=== PATIENT | male | born 1950 | race Caucasian/White ===

== ENCOUNTER → 2019-08-22 09:16 | Outpatient (BNVA) | payer MEDICARE, OTHER, SELFPAY | PROVIDERS: Family Provider Family Medicine; Visit Provider Orthopaedic Surgery | DX: M25.552 Pain in left hip (principal) | CPT/HCPCS: 73503 ==

== ENCOUNTER 2019-12-24 08:11 | Outpatient (CLI) | payer MEDICARE, OTHER, SELFPAY ==
--- NOTE | 2019-12-24 08:32 | CT_ITS ---
WS: [id number] CT CHEST WITHOUT INTRAVENOUS CONTRAST HISTORY: LUNG NODULE TECHNIQUE: Contiguous 5 mm axial imaging performed on the thorax. Coronal and sagittal reformats are submitted. All CT scans at [facility] use at least one of these dose optimization techniq ues: automated exposure control; mA and/or kV adjustment per patient size (includes targeted exams wh ere dose is matched to clinical indication); or iterative reconstruction. CONTRAST: None DLP: 1163.29 mGycm COMPARISON: 08/26/2018, 05/21/2017 and 12/04/2016 Lungs and central airway: Slight volume loss and atelectasis at the RIGHT lung base with mild improve ment since the prior examination. Small pleural nodules and subpleural nodules in the RIGHT thorax. T he largest measures 5 mm in the RIGHT lower lobe has been present since 05/21/2017. Additional stable 6 mm nodule in the lingula. No new pulmonary nodule. No pneumonia. Overall improved aeration in the lo wer lung dennis bilaterally since 08/26/2018. Pleura: Mild pleural thickening on the RIGHT. There is a very small amount of residual fluid at the R IGHT lung base. Heart and pericardium: Moderate enlargement the chambers. Extensive coronary artery calcifications. D ual lead cardiac pacer. Mediastinum and shruthi: No mediastinum or hilar adenopathy. Vessels: Extensive coronary artery calcifications. Mild atherosclerosis aorta. Normal sized pulmonary arteries. Chest wall and lower neck: Cardiac pacer over the LEFT pectoralis muscle. Upper abdomen: No adrenal mass. Prior cholecystectomy. Heavy calcification in the splenic artery. Osseous structures: Increase in the thoracic kyphosis. CT/CT chest wo con [id number] IMPRESSION: 1. Stable pulmonary nodules since 2018. 2. Improving aeration at the lung bases. Mild persistent bilateral pleural thi ckening. 3. Moderate cardiomegaly. 4. Dual lead permanent cardiac pacer. 5. Prior cholecystectomy.
== END 2019-12-24 08:12 | disposition home or self-care (01) ==
LOC: RADWPI 08:15
PROVIDERS: Family Provider Family Medicine; Visit Provider Family Medicine
DX: R91.1 Solitary pulmonary nodule (principal); R91.8 Other nonspecific abnormal finding of lung field; I51.7 Cardiomegaly; Z95.0 Presence of cardiac pacemaker
CPT/HCPCS: 71250

== ENCOUNTER → 2020-03-23 08:02 | Outpatient (BNVA) | payer MEDICARE, OTHER, SELFPAY | PROVIDERS: Family Provider Family Medicine; PCP Family Medicine; Visit Provider Urology | DX: N40.1 Benign prostatic hyperplasia with lower urinary tract symptoms (principal); N48.1 Balanitis; Z12.5 Encounter for screening for malignant neoplasm of prostate | CPT/HCPCS: 81003; G0103 ==

== ENCOUNTER → 2021-03-23 10:51 | Outpatient (BNVA) | payer MEDICARE, OTHER, SELFPAY | PROVIDERS: Family Provider Family Medicine; PCP Family Medicine; Visit Provider Urology | DX: N40.1 Benign prostatic hyperplasia with lower urinary tract symptoms (principal); Z12.5 Encounter for screening for malignant neoplasm of prostate | CPT/HCPCS: 81003; G0103 ==

== ENCOUNTER → 2021-07-11 08:24 | Outpatient (BNVA) | payer MEDICARE, OTHER, SELFPAY | PROVIDERS: Family Provider Family Medicine; PCP Family Medicine; Visit Provider Nurse Practitioner Family | DX: N40.1 Benign prostatic hyperplasia with lower urinary tract symptoms (principal); N45.1 Epididymitis; N48.1 Balanitis | CPT/HCPCS: 81003 ==

== ENCOUNTER 2021-07-15 11:01 | Outpatient (CLI) | payer MEDICARE, OTHER, SELFPAY ==
[2021-07-15 11:31] LABS: INR 2.41 (0.8-1.2)
== END 2021-07-15 11:02 | disposition home or self-care (01) ==
LOC: LAB 11:04
PROVIDERS: PCP Family Medicine; Visit Provider Urology
DX: Z79.01 Long term (current) use of anticoagulants (principal)
CPT/HCPCS: 85610

== ENCOUNTER → 2021-08-01 07:46 | Outpatient (BNVA) | payer MEDICARE, OTHER, SELFPAY | PROVIDERS: PCP Family Medicine; Visit Provider Nurse Practitioner Family | DX: N40.1 Benign prostatic hyperplasia with lower urinary tract symptoms (principal); N13.8 Other obstructive and reflux uropathy | CPT/HCPCS: 81003 ==

== ENCOUNTER → 2021-08-30 07:58 | Outpatient (BNVA) | payer MEDICARE, OTHER, SELFPAY | PROVIDERS: PCP Family Medicine; Visit Provider Urology | DX: N40.1 Benign prostatic hyperplasia with lower urinary tract symptoms (principal); N45.1 Epididymitis; N48.1 Balanitis | CPT/HCPCS: 81003; 99213 ==

== ENCOUNTER → 2021-10-31 12:31 | Outpatient (BNVA) | payer MEDICARE, OTHER, SELFPAY | PROVIDERS: PCP Family Medicine; Visit Provider Otolaryngology | DX: J30.9 Allergic rhinitis, unspecified (principal); J32.9 Chronic sinusitis, unspecified; H66.93 Otitis media, unspecified, bilateral; H91.93 Unspecified hearing loss, bilateral; Z87.891 Personal history of nicotine dependence | CPT/HCPCS: 99203; 99204 ==

== ENCOUNTER 2022-01-09 12:02 | Outpatient (CLI) | payer MEDICARE, OTHER, SELFPAY ==
--- NOTE | 2022-01-09 12:10 | CT_ITS ---
WS: [id number] CT SINUSES TECHNIQUE: Noncontrast CT of the paranasal sinuses with coronal and sagittal reformatted images. CLINICAL INFORMATION: CHRONIC SINUSITIS COMPARISON: None. DLP: 481.[address] scans at [facility] use at least one of these dose optimization techniques: automated e xposure control; mA and/or kV adjustment per patient size (includes targeted exams where dose is matc hed to clinical indication); or iterative reconstruction. FINDINGS: Paranasal sinuses are well aerated. Mastoid air cells are well aerated. Normal posterior nasopharynx. Normal parapharyngeal fat. Mild LEFT to RIGHT nasal deviation measuring 3 mm. Mild narrowing of the ostiomeatal units bilaterall y which remain patent. Small LEFT debora bullosa. Frontal sinuses and ethmoid air cells are well aera radha. Maxillary sinuses and sphenoid sinuses are well aerated. CT/CT sinus wo con* [id number] IMPRESSION: 1. Mild LEFT to RIGHT nasal septal deviation measuring 3 mm. 2. Paranasal sinuses are well aerated. No acute sinusitis. 3. Small LEFT debora bullosa. 4. Mastoid air cells are well aerated. 5. Normal visualized posterior nasopharynx.
--- NOTE | 2022-01-09 12:10 | CT_ITS ---
WS: [id number] CT CHEST WITH INTRAVENOUS CONTRAST HISTORY: LUNG CANCER TECHNIQUE: Contiguous 5 mm axial imaging performed on the thorax. Coronal and sagittal reformats are submitted. All CT scans at [facility] use at least one of these dose optimization techniques: automated exposure control; mA and/or kV adjustment per patient size (includes targeted exams where dose is matched to clinical indication); or iterative reconstruction. CONTRAST: Omnipaque 350; 95 mL IV. DLP: 746.27 mGy.cm COMPARISON: 12/24/2019 Lungs and central airway: Prior RIGHT lower lobectomy. Changes of chronic emphysema. Pleural-based no dules are reidentified in the RIGHT upper lobe. The largest nodule measures 5 mm and unchanged in siz e. Volume loss with atelectatic changes at the RIGHT lung base. There is a focal area of low attenuat ion measuring 3.1 x 1.5 cm at the RIGHT lung base. Suspect this is a small amount of pleural fluid an d may be a small empyema. May be sterile. Similar finding as compared to 12/24/2019. Pleura: Small amount of pleural fluid at the RIGHT lung base may have slightly progressed. Probably n ot significant. There is mild pleural thickening which is probably postsurgical. Heart and pericardium: Markedly enlarged heart. All 4 chambers are enlarged. Most significant enlarge ment of the LEFT heart. Mediastinum and shruthi: Bilateral indeterminate hilar lymph nodes. The largest lymph node on the LEFT m easures 14 mm. Vessels: Mild atherosclerosis aorta. Normal size pulmonary artery. Chest wall and lower neck: LEFT subclavian defibrillator. Upper abdomen: Prior cholecystectomy. Tricuspid regurgitation into hepatic veins. Splenic artery calc ifications. Osseous structures: Increase in thoracic kyphosis. CT/CT chest w con* [id number] IMPRESSION: 1. Status post RIGHT lower lobectomy. 2. Pleural-based nodules in the RIGHT lung with pleural thickening and a small persistent effusion not significantly changed since 12/24/2019. Very slight prog ression of the RIGHT pleural effusion. 3. Indeterminate hilar lymphadenopathy. The largest lymph node on the LEFT is 14 mm. 4. Marked enlargement of the heart. 5. Prior cholecystectomy.
[2022-01-09] MEDS: iohexol 350 mg/mL 100 mL Btl IV (13:25)
== END 2022-01-09 12:03 | disposition home or self-care (01) ==
LOC: RAD 12:03
PROVIDERS: PCP Family Medicine; Visit Provider Family Medicine
DX: C34.90 Malignant neoplasm of unspecified part of unspecified bronchus or lung (principal); J32.9 Chronic sinusitis, unspecified; J34.2 Deviated nasal septum; Z90.2 Acquired absence of lung [part of]; R91.8 Other nonspecific abnormal finding of lung field; I51.7 Cardiomegaly; Z90.49 Acquired absence of other specified parts of digestive tract
CPT/HCPCS: 70486; 71260

== ENCOUNTER → 2022-01-31 10:57 | Outpatient (BNVA) | payer MEDICARE, OTHER, SELFPAY | PROVIDERS: PCP Family Medicine; Visit Provider Internal Medicine Pulmonary Disease | DX: R91.8 Other nonspecific abnormal finding of lung field (principal); J22 Unspecified acute lower respiratory infection; R06.02 Shortness of breath; R59.0 Localized enlarged lymph nodes; Z90.2 Acquired absence of lung [part of]; J43.9 Emphysema, unspecified; Z87.891 Personal history of nicotine dependence; Z85.118 Personal history of other malignant neoplasm of bronchus and lung; I50.9 Heart failure, unspecified; I48.91 Unspecified atrial fibrillation; Z95.0 Presence of cardiac pacemaker; Z79.01 Long term (current) use of anticoagulants | CPT/HCPCS: 87070; 87205; 99204 ==

== ENCOUNTER 2022-02-24 11:34 | Outpatient (CLI) | payer MEDICARE, OTHER, SELFPAY ==
[2022-02-24 12:20] LABS: Anion Gap 18.1 (5-19); Blood Urea Nitrogen 12 mg/dL (8-23); Calcium 9.4 mg/dL (8.5-10.5); Carbon Dioxide 29 mmol/L (22-29); Chloride 95 mmol/L (98-107); Glucose 108 mg/dL (65-115); Magnesium 1.7 mg/dL (1.7-2.3); Osmolality Calculated 288 mOsm/kg (285-295); Potassium 3.1 mmol/L (3.5-5.1); Sodium 139 mmol/L (136-145)
== END 2022-02-24 11:35 | disposition home or self-care (01) ==
LOC: LAB 11:37
PROVIDERS: PCP Family Medicine; Visit Provider Internal Medicine Pulmonary Disease
DX: I50.9 Heart failure, unspecified (principal)
CPT/HCPCS: 80048; 83735

== ENCOUNTER 2022-03-06 16:49 | Emergency (ER) | payer MEDICARE, OTHER, SELFPAY ==
[2022-03-06 16:55] VITALS: BP 85/47; PULSE 81; TEMP 36.3; O2SAT 95; BMI 29.0
[2022-03-06 18:22] VITALS: BP 97/62
--- NOTE | 2022-03-06 18:32 | W.ED.MALEGU ---
HPI - Male Genitourinary General: Chief complaint: Urogenital-Male Stated complaint: Marion sent, abd pain Time Seen by Provider: 03/06/22 17:23 History of Present Illness: 71-year-old male presents emergency department stating he can hardly urinate. Patient has a history of prostate enlargement. He is taking finasteride and Flomax. Patient also reports constipation for the last several days. Patient had a Rizvi catheter placed at [facility] where he was admitted for congestive heart failure and was receiving diuresis. He reports approximately 15 L were removed. He has been having trouble with a weak urine stream and incomplete emptying even preceding his Rizvi catheter but it seems to have gotten worse and today he can hardly urinate at all. A bedside bladder scan showed 750 cc of urine. Associated symptoms: Deny vomiting Review of Systems General: Reports: 10 or more systems reviewed and unremarkable except in HPI and below Const: Denies: fever(s) or chills Card: Denies: chest pain or syncope Resp: Denies: dyspnea GI: Denies: vomiting or diarrhea : Reports: difficulty urinating, urinary frequency, urinary hesitancy, urinary dribbling, difficulty starting urination and change in urine stream Skin/Breast: Denies: rash or sores Neuro: Denies: headache(s) or weakness in extremities PFSH ED PFSH: Medical History (Updated 03/06/22 @ 19:34 by Jeremi Downey MD) Acute cystitis BPH loc w urin obs/LUTS CHF (congestive heart failure) Chronic anticoagulation History of cardiac pacemaker Hypercholesterolemia Incomplete emptying of bladder Lung mass Pacemaker Surgical History (Updated 01/31/22 @ 19:48 by Zheng Iverson MD) History of cholecystectomy History of lobectomy of lung right lower on 01/29/2017 Family History Father No problems noted. Mother , at age 69 Cancer colon and stomach CAD (coronary artery disease) Other Diabetes Hypertension Stroke Social History Smoking and tobacco status: former smoker Quit status (tobacco): has quit using tobacco Year quit tobacco: 2016 Former quit date comment: 1-2ppd x 35 years Alcohol intake: current Alcohol intake frequency: few times a month Marital status: Current occupational status: retired History of recent travel: No Physical Exam Const: COMMON NORMALS: no limitations and well nourished EXAM LIMITATIONS: no altered mental status HENMT: COMMON NORMALS: normocephalic, atraumatic and external ears normal HEAD & SCALP: normocephalic and atraumatic EXTERNAL EAR: Yes external ears normal MOUTH: no muffled voice Neck/C-Spine: COMMON NORMALS: no JVD GENERAL: Yes normal visual inspection and Yes trachea midline Resp: COMMON NORMALS: normal respiratory effort, No use of accessory muscles and clear to auscultation bilaterally AUSCULTATION: clear to auscultation bilaterally Cardio: COMMON NORMALS: no JVD, regular rate and regular rhythm RATE: regular rate RHYTHM: regular rhythm GI: COMMON NORMALS: Soft to palpation PALPATION: Yes Soft to palpation, Yes Tenderness to palpation present (GI) Details: other (Suprapubic), No Guarding due to palpation present (GI) and Yes Bladder palpation abnormal : COMMON NORMALS: Yes normal external exam BLADDER/KIDNEY EXAM: Yes Bladder palpation abnormal PENIS: uncircumcised Course Vital Signs: Vital signs: Vital Signs Temperature 97.4 F L 03/06/22 16:55 Pulse Rate 81 03/06/22 16:55 Blood Pressure 97/62 03/06/22 18:22 Pulse Oximetry 95 03/06/22 16:55 Oxygen Delivery Me thod 03/06/22 16:55 MDM - Male Medical Decision Making Patient presents with acute on chronic urinary retention. He has 750 cc in his bladder. A Rizvi catheter was placed and 800 cc were drained. The patient is already taking 2 prostate medications. The plan is to check a urinalysis and if no signs of infection then can DC with instructions to follow-up with his urologist. Patient will need training on Rizvi catheter care at home. UPDATE: UA is positive for UTI. Culture of urine sent. Start on augmentin, as he's tolerated this in the past. D/c home with rizvi. BP has been soft but has been on aggressive diuresis--will have him monitor at home. Lab Data Laboratory Results Urine Color Yellow (Yellow) 03/06/22 18:50 Urine Appearance Clear (CLEAR) 03/06/22 18:50 Urine pH 7 (5-7) 03/06/22 18:50 Ur Specific [place] 1.010 (1.005-1.030) 03/06/22 18:50 Urine Protein Neg (Negative) 03/06/22 18:50 Urine Glucose (UA) Norm (Normal) 03/06/22 18:50 Urine Ketones Negative (Negative) 03/06/22 18:50 Urine Blood 3+ (Negative) H 03/06/22 18:50 Urine Nitrate Negative (Negative) 03/06/22 18:50 Urine Bilirubin Neg (Negative) 03/06/22 18:50 Urine Urobilinogen 4 mg/dL (Negative) H 03/06/22 18:50 Ur Leukocyte Esterase 2+ (Negative) H 03/06/22 18:50 Urine RBC Too numerous to cnt /hpf (0-2) H 03/06/22 18:50 Urine WBC Too numerous to cnt /hpf (0-5) H 03/06/22 18:50 Ur Squamous Epith Cells 0-4 /hpf (0-5) H 03/06/22 18:50 Amorphous Sediment Not Reportable 03/06/22 18:50 Urine Bacteria 3+ /hpf (NONE) H 03/06/22 18:50 Discharge Plan Discharge Patient Disposition: Home Clinical Impression: Urinary tract infection, Acute retention of urine Condition: Stable Prescriptions: New amoxicillin-pot clavulanate 875-125 mg tablet 1 tab PO BID 10 Days Qty: 20 0RF Discontinued amoxicillin-pot clavulanate [Augmentin] 500-125 mg tablet 1 tab PO BID Qty: 14 0RF No Action rosuvastatin 20 mg tablet 20 mg PO DAILY cetirizine [All Day Allergy (cetirizine)] 10 mg tablet 5 mg PO DAILY PRN albuterol sulfate [ProAir HFA] 90 mcg/actuation HFA aerosol inhaler 2 puff INHALATION Q6H PRN nitroglycerin [Nitrostat] 0.4 mg tablet, sublingual 0.4 mg SUBLINGUAL Q5M PRN carvedilol 25 mg tablet 25 mg PO BID warfarin 3 mg tablet 2.5 mg PO DAILY trazodone 50 mg tablet See Rx Instructions PO DAILY Rx Instructions: 1-3 tabs by mouth nightly ketoconazole 2 % shampoo 1 applic topical .2 x weekly Qty: 120 3RF Rx Instructions: Lather into scalp 2 times weekly. Allow to sit on scalp for 5 minutes before rinsing. mometasone 0.1 % solution 1 applic topical DAILY Qty: 60 2RF Hold Instructions: Patient No Longer Taking Rx Instructions: Apply a few drops daily as needed to affected areas on scalp Jardiance 10 mg tablet 10 mg PO DAILY fenofibrate 160 mg tablet 160 mg PO DAILY Entresto 24-26 mg tablet 1 tab PO BID bumetanide 1 mg tablet 1 mg PO BID metoprolol succinate 50 mg tablet extended release 24 hr 50 mg PO BID spironolactone 25 mg tablet 25 mg PO .1/2 x1 day Children's Flonase Sensimist 27.5 mcg/actuation spray,suspension 2 spray intranasal DAILY Rx Instructions: into each nostril ipratropium bromide 42 mcg (0.06 %) spray,non-aerosol 2 spray intranasal DAILY Rx Instructions: administer into each nostril magnesium oxide 250 mg magnesium tablet 250 mg PO DAILY loratadine 10 mg tablet 10 mg PO DAILY ipratropium-albuterol 0.5 mg-3 mg(2.5 mg base)/3 mL solution for nebulization 3 ml inhalation Q6H PRN pantoprazole 40 mg tablet,delayed release (DR/EC) 40 mg PO DAILY Spiriva Respimat 2.5 mcg/actuation mist 2 puff inhalation DAILY Qty: 4 3RF Rx Instructions: please dispose under 340B albuterol sulfate [Ventolin HFA] 90 mcg/actuation HFA aerosol inhaler 1 inh inhalation QID PRN (Reason: shortness of breath or wheezing) Qty: 8.5 3RF Rx Instructions: UNDER 340 b finasteride 5 mg tablet See Rx Instructions .ROUTE .COMPLEX Qty: 90 3RF Dose Instruction: Take 1 tablet by mouth once daily Rx Instructions: Take 1 tablet by mouth once daily tamsulosin 0.4 mg capsule See Rx Instructions .ROUTE .COMPLEX Qty: 180 3RF Dose Instruction: Take 1 capsule by mouth twice daily Rx Instructions: Take 1 capsule by mouth twice daily potassium chloride 10 mEq tablet extended release 10 meq PO DAILY Qty: 30 3RF Discharge Orders: Discharge ED (Routine); Ordered 03/06/22 Ordered By: Jeremi Downey Referrals: [employer] MD [Primary Care Provider] - Fernando Marion MD [Physician] - 4-7 days (UTI, urinary retention, rizvi had to be placed) Discharge Diet: Usual diet Discharge Activity: Increase activity as tolerated Patient Instructions: Pain Management, Rizvi Catheter Placement and Care (ED), Urinary Retention in Men (ED) Activity Restrictions/Additional Instructions: Make an appointment with Dr Marion for as soon as possible. Take antibiotics as prescribed. Read handou about rizvi care. Return if getting worse. Monitor your blood pressure at home. If your blood pressure is less than 90 on top, call your doctor and do not take your bumetanide or carvedilol, Coding Level of Care Code ED Insurance Claims Representative for Chg Fwd Exam Detailed
[2022-03-06 19:14] LABS: Add Urine Microscopic? YES; Bilirubin Urine Neg (Negative); Blood Urine 3+ (Negative); Glucose Urine UA Norm (Normal); Ketones Urine Negative (Negative); Leukocyte Esterase Urine 2+ (Negative); Nitrate Urine Negative (Negative); Protein Urine Neg (Negative); Urine Appearance Clear (CLEAR); Urine Color Yellow (Yellow); Urobilinogen Urine 4 mg/dL (Negative); pH Urine 7 (5-7)
[2022-03-06 19:23] LABS: RBC Urine TOO NUMEROUS TO CNT /hpf (0-2); WBC Urine TOO NUMEROUS TO CNT /hpf (0-5)
[2022-03-06 19:24] LABS: Add Urine Culture? Yes; Bacteria Urine 3+ /hpf; Squamous Epithelial Cell Urine 0-4 /hpf (0-5)
[2022-03-06 19:31] VITALS: BP 108/63; RESP 18
[2022-03-06] MEDS: ciprofloxacin 500 mg Tablet PO (19:42)
== END 2022-03-06 20:00 | disposition home or self-care (01) ==
PROVIDERS: Emergency Provider Emergency Medicine; PCP Family Medicine
DX: N39.0 Urinary tract infection, site not specified (principal); Z79.01 Long term (current) use of anticoagulants; Z87.891 Personal history of nicotine dependence; N40.1 Benign prostatic hyperplasia with lower urinary tract symptoms; R33.8 Other retention of urine; Z95.0 Presence of cardiac pacemaker; Z90.2 Acquired absence of lung [part of]; I50.9 Heart failure, unspecified
CPT/HCPCS: 51702; 51798; 81001; 87077; 87086; 87186; 99283

== ENCOUNTER → 2022-03-13 12:42 | Outpatient (BNVA) | payer MEDICARE, OTHER, SELFPAY | PROVIDERS: PCP Family Medicine; Visit Provider Family Medicine | DX: E87.6 Hypokalemia (principal); E78.00 Pure hypercholesterolemia, unspecified; Z79.01 Long term (current) use of anticoagulants; N39.0 Urinary tract infection, site not specified; I50.9 Heart failure, unspecified; N48.1 Balanitis; R33.8 Other retention of urine; R59.0 Localized enlarged lymph nodes; R13.10 Dysphagia, unspecified | CPT/HCPCS: 80053; 80061; 83735; 84443; 85610 ==

== ENCOUNTER → 2022-03-22 08:17 | Outpatient (BNVA) | payer MEDICARE, OTHER, SELFPAY | PROVIDERS: PCP Family Medicine; Visit Provider Family Medicine | DX: E03.8 Other specified hypothyroidism (principal); I50.9 Heart failure, unspecified; E87.6 Hypokalemia | CPT/HCPCS: 80048; 84439; 84443; 85610 ==

== ENCOUNTER → 2022-03-23 10:32 | Outpatient (BNVA) | payer MEDICARE, OTHER, SELFPAY | PROVIDERS: PCP Family Medicine; Visit Provider Urology | DX: N40.1 Benign prostatic hyperplasia with lower urinary tract symptoms (principal); R33.8 Other retention of urine; N30.00 Acute cystitis without hematuria; Z79.01 Long term (current) use of anticoagulants | CPT/HCPCS: 52000; 99214 ==

== ENCOUNTER 2022-03-29 10:52 | Outpatient (CLI) | payer MEDICARE, OTHER, SELFPAY | END 2022-03-29 10:53 | disposition home or self-care (01) | LOC: RT 10:55 | PROVIDERS: PCP Family Medicine; Visit Provider Internal Medicine Pulmonary Disease | DX: R06.02 Shortness of breath (principal); J43.9 Emphysema, unspecified; R59.0 Localized enlarged lymph nodes; Z90.2 Acquired absence of lung [part of]; Z87.891 Personal history of nicotine dependence; I50.9 Heart failure, unspecified; I95.2 Hypotension due to drugs; Z85.118 Personal history of other malignant neoplasm of bronchus and lung; R06.00 Dyspnea, unspecified; I48.91 Unspecified atrial fibrillation; Z79.01 Long term (current) use of anticoagulants | CPT/HCPCS: 94010; 94726; 94729; 99214 ==

== ENCOUNTER → 2022-04-03 12:12 | Outpatient (BNVA) | payer MEDICARE, OTHER, SELFPAY | PROVIDERS: PCP Family Medicine; Visit Provider Family Medicine | DX: N40.1 Benign prostatic hyperplasia with lower urinary tract symptoms (principal); R39.9 Unspecified symptoms and signs involving the genitourinary system; N39.0 Urinary tract infection, site not specified; I50.9 Heart failure, unspecified; R13.10 Dysphagia, unspecified | CPT/HCPCS: 80053; 81000; 83735; 85025; 87077; 87086; 87184 ==

== ENCOUNTER 2022-04-11 18:48 | Inpatient (IN) | payer MEDICARE, OTHER, SELFPAY ==
[2022-04-11 19:08] VITALS: BP 89/53; PULSE 78; RESP 18; TEMP 36.8; O2SAT 96; BMI 29.1
[2022-04-11 21:09] LABS: Basophils # 0.1 10^3/uL (0.0-0.1); Basophils % 0.7 %; Eosinophils % 0.4 %; Hematocrit 51.8 % (42.0-52.0); Lymphocytes # 1.3 10^3/uL (0.8-4.8); Lymphocytes % 19.6 %; Mean Corpuscular HGB Conc 32.8 g/dL (30.0-36.0); Mean Corpuscular Hemoglobin 26.3 pg (28.0-34.0); Mean Corpuscular Volume 80.2 fl (80-94); Mean Platelet Volume 11.6 fL (7.4-10.4); Monocytes # 0.5 10^3/uL (0.2-0.9); Monocytes % 7.1 %; Neutrophils # 4.84 10^3/uL (1.8-7.7); Neutrophils % 71.6 %; Nucleated Red Blood Cells % 0 %; Platelet Count 114 10^3/cmm (130-400); Red Blood Count 6.46 10^6/uL (4.1-5.3); Red Cell Distribution Width 21.8 % (12.1-15.1); White Blood Count 6.8 10^3/uL (4.0-10.0)
[2022-04-11 21:18] LABS: INR 3.25 (0.8-1.2)
[2022-04-11 21:24] VITALS: BP 95/77; PULSE 74; RESP 27; O2SAT 97
[2022-04-11 21:28] LABS: Add RBC Morph Yes; RBC Morph Comp No
[2022-04-11 21:29] LABS: Anisocytosis 2+; Dimorphic RBC 1+; Microcytosis 1+; Target Cells 1+
[2022-04-11 21:32] LABS: Alanine Aminotransferase 26 U/L (0-41); Albumin Level 3.4 g/dL (3.5-5.2); Alkaline Phosphatase 113 U/L (40-130); Anion Gap 13.9 (5-19); Aspartate Amino Transferase 50 U/L (0-40); Blood Urea Nitrogen 15 mg/dL (8-23); Carbon Dioxide 29 mmol/L (22-29); Chloride 96 mmol/L (98-107); Globulin 3.4 g/dL (1.3-4.6); Glucose 110 mg/dL (65-115); Osmolality Calculated 281 mOsm/kg (285-295); Potassium 3.9 mmol/L (3.5-5.1); Sodium 135 mmol/L (136-145); Total Bilirubin 3.7 mg/dL (0.15-1.2); Total Protein 6.8 g/dL (6.6-8.7)
--- NOTE | 2022-04-11 21:44 | CTR_ITS ---
PROCEDURE INFORMATION: Exam: CT Abdomen And Pelvis With Contrast Exam date and time: 04/11/2022 9:53 PM Age: 71 years old Clinical indication: Abdominal pain; Generalized; Prior surgery; Surgery type: RT lower lobectomy. Pacemaker. Gb. Lt femur. Patient HX: C/O abd pain with gross hematuria. History of lung cancer. TECHNIQUE: Imaging protocol: Computed tomography of the abdomen and pelvis with contrast. Radiation optimization: All CT scans at this facility use at least one of these dose optimization techniques: automated exposure control; mA and/or kV adjustment per patient size (includes targeted exams where dose is matched to clinical indication); or iterative reconstruction. Contrast material: OMNI 350; Contrast volume: 100 ml; Contrast route: INTRAVENOUS (IV); COMPARISON: CT abdomen pelvis w con* [id number] 12/07/2015 4:23 PM RADIATION DOSE METRICS: Total DLP (mGy-cm): 775.48 FINDINGS: Tubes, catheters and devices: Pacemaker leads in the heart. Pleural spaces: Small right pleural effusion. Heart: Cardiomegaly. Liver: Hepatomegaly measuring 20.5 cm with diffuse fatty infiltration. No focal nodule. Gallbladder and bile ducts: Cholecystectomy. The bile ducts are normal. Pancreas: Normal. No ductal dilation. Spleen: Normal. No splenomegaly. Adrenal glands: Normal. No mass. Kidneys and ureters: Normal. No hydronephrosis. Stomach and bowel: Diverticulosis of the colon. No diverticulitis. The stomach and small bowel are unremarkable. No obstruction. Appendix: The appendix is visualized and is normal. Intraperitoneal space: Mild mesenteric edema. Mild ascites in the upper abdomen and pelvis. Vasculature: Diffuse arterial calcifications. 3.3 cm infrarenal abdominal aortic aneurysm. Moderate stenosis at the origin of the celiac artery. Moderate stenosis in the proximal superior mesenteric artery. Lymph nodes: Unremarkable. No enlarged lymph nodes. Urinary bladder: Urinary bladder wall thickening and enhancement with surrounding fat stranding. 5.4 cm posterior right urinary bladder diverticulum with wall enhancement and thickening. Reproductive: Coarse calcifications in a normal sized prostate. Bones/joints: Intramedullary roseanna in the left femur. Degenerative changes of the spine. No acute fracture identified. Soft tissues: Diffuse body wall edema. Mild presacral soft tissue edema. CT/CT abdomen pelvis w con* [id number] IMPRESSION: 1. Findings consistent with cystitis with an infected large posterior right urinary bladder diverticulum. 2. Volume overload with a right pleural effusion, ascites, and body wall edema. 3. Diverticulosis of the colon without diverticulitis. 4. Enlarged liver with fatty infiltration. 5. 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
[2022-04-11] MEDS: iohexol 350 mg/mL 500 mL Btl (per mL) IV (22:05)
[2022-04-11] MEDS: sodium chloride 0.9% 1,000 ML 999 ML IV (22:09)
[2022-04-11 22:11] LABS: Lactate (Lactic Acid level) 1.7 mmol/L (0.5-2.2)
[2022-04-11 22:20] LABS: NT Pro B Type Natriuretic Pept 6064 pg/mL (0-125)
[2022-04-11 22:30] VITALS: BP 90/68; PULSE 88; RESP 19; O2SAT 94
--- NOTE | 2022-04-11 22:32 | XRR_ITS ---
PROCEDURE INFORMATION: Exam: XR Chest Exam date and time: 04/11/2022 10:40 PM Age: 71 years old Clinical indication: Shortness of breath; Prior surgery; Surgery type: RT lower lobectomy. Pacemaker. Patient HX: SOB with mild hypoxia on monitor. History of chf and lung cancer. TECHNIQUE: Imaging protocol: Radiologic exam of the chest. Views: 1 view. COMPARISON: CT chest w con* [id number] 01/09/2022 1:17 PM FINDINGS: Tubes, catheters and devices: Intact dual lead left subclavian pacemaker. Lungs: Mild perihilar and basilar interstitial opacities. No consolidation. Pleural spaces: Small right pleural effusion with fluid in the minor fissure. No pneumothorax. Heart/Mediastinum: Stable cardiomegaly. Bones/joints: Unremarkable. XR/XR chest 1V portable [id number] IMPRESSION: Mild congestive heart failure pattern.
--- NOTE | 2022-04-11 22:37 | ED_ITS ---
HPI - Male Genitourinary General: Chief complaint: Urogenital-Male Stated complaint: bleeding in bladder area? Time Seen by Provider: 04/11/22 21:27 Source: patient Mode of arrival: ambulatory Limitations: no limitations History of Present Illness: 71-year-old male who states that he has been dealing with recurrent urinary tract infections since February he states that he has had increasing bladder pain with hematuria over the last 2 days states pain sharp in nature rates it a 2 out of 10 is having much more blood than typical he is on Coumadin he denies any fevers denies any worsening improving factors. Associated symptoms: Reports dysuria and hematuria; Deny nausea or vomiting Review of Systems Const: Denies: fever(s), chills, body aches or change in appetite Eyes: Denies: blurry vision or eye discomfort ENMT: Denies: throat pain or dental pain Card: Denies: chest pain Resp: Denies: dyspnea GI: Denies: abdominal pain, nausea, vomiting or diarrhea : Reports: dysuria, urinary urgency and hematuria Musc: Denies: neck pain or back pain Skin/Breast: Denies: rash Neuro: Denies: headache(s) Psych: Denies: depression Fredrick/Lymph: Denies: easy bruising All/Imm: Denies: urticaria PFSH ED PFSH: Medical History Allergic rhinitis BPH loc w urin obs/LUTS Cardiac defibrillator in place Cardiomegaly CHF (congestive heart failure) Ex-smoker GERD (gastroesophageal reflux disease) Hearing loss of both ears History of lung cancer Hypercholesterolemia Pacemaker Warfarin anticoagulation Surgical History History of cardiac defibrillator placement History of cardiac radiofrequency ablation History of cholecystectomy History of femur fracture left, surgical repair History of lobectomy of lung right lower on 01/29/2017 History of permanent cardiac pacemaker placement History of umbilical hernia repair Family History Father No problems noted. 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 History of recent travel: No Physical Exam Const: COMMON NORMALS: no acute distress, patient oriented x3 and healthy appearing HENMT: COMMON NORMALS: normocephalic and atraumatic HEAD & SCALP: normocephalic and atraumatic Eye: COMMON NORMALS: Equal, round and reactive pupils present and EOMs intact bilaterally PUPIL: Yes Equal, round and reactive pupils present Neck/C-Spine: COMMON NORMALS: full ROM and supple Chest: COMMONS NORMALS: normal inspection of the chest and normal palpation of entire chest wall Resp: COMMON NORMALS: normal respiratory effort, No retractions, No use of accessory muscles and clear to auscultation bilaterally AUSCULTATION: clear to auscultation bilaterally Cardio: COMMON NORMALS: regular rate, regular rhythm and No murmurs present (Cardio) RATE: regular rate RHYTHM: regular rhythm GI: COMMON NORMALS: Normal to inspection, nondistended, normoactive bowel sounds present, Soft to palpation, non-tender and no masses PALPATION: Yes Soft to palpation Extremity: COMMON NORMALS: normal to inspection and full ROM Neuro: COMMON NORMALS: patient oriented x3, moves all extremities and no focal motor deficits Psych: COMMON NORMALS: mental status grossly normal, Normal thought process present and cooperative THOUGHT PROCESS: Normal thought process present Skin: COMMON NORMALS: no rashes or lesions noted and no wounds GENERAL SKIN EXAM: no rashes or lesions noted Course Vital Signs: Vital signs: Vital Signs Temperature 98.2 F 04/11/22 19:08 Pulse Rate 87 04/11/22 23:30 Respiratory Rate 24 H 04/11/22 23:30 Blood Pressure 84/69 04/11/22 23:30 Pulse Oximetry 97 04/11/22 23:30 Oxygen Delivery Me thod 04/11/22 23:30 MDM - Male Medical Decision Making Patient presents here with hematuria was found to have cystitis with his hematuria CT shows cystitis as well he is hypotensive. States he is chronically hypotensive white count lactate is normal spoke to hospitalist will admit for cystitis. Lab Data 04/11/22 20:41 04/11/22 20:41 Radiology Impressions Abdomen/Pelvis CT 04/11/22 21:44 IMPRESSION: 1. Findings consistent with cystitis with an infected large posterior right urinary bladder diverticulum. 2. Volume overload with a right pleural effusion, ascites, and body wall edema. 3. Diverticulosis of the colon without diverticulitis. 4. Enlarged liver with fatty infiltration. 5. 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 Chest X-Ray 04/11/22 22:32 IMPRESSION: Mild congestive heart failure pattern. Laboratory Results WBC 6.8 10^3/uL (4.0-10.0) 04/11/22 20:41 RBC 6.46 10^6/uL (4.1-5.3) H 04/11/22 20:41 Hgb 17.0 g/dL (11.7-16.6) H 04/11/22 20:41 Hct 51.8 % (42.0-52.0) 04/11/22 20:41 MCV 80.2 fl (80-94) 04/11/22 20:41 MCH 26.3 pg (28.0-34.0) L 04/11/22 20:41 MCHC 32.8 g/dL (30.0-36.0) 04/11/22 20:41 RDW 21.8 % (12.1-15.1) H 04/11/22 20:41 Plt Count 114 10^3/cmm (130-400) L 04/11/22 20:41 MPV 11.6 fL (7.4-10.4) H 04/11/22 20:41 Neut % (Auto) 71.6 % 04/11/22 20:41 Lymph % (Auto) 19.6 % 04/11/22 20:41 [place] % (Auto) 7.1 % 04/11/22 20:41 Eos % (Auto) 0.4 % 04/11/22 20:41 Baso % (Auto) 0.7 % 04/11/22 20:41 Neut # (Auto) 4.84 10^3/uL (1.8-7.7) 04/11/22 20:41 Lymph # (Auto) 1.3 10^3/uL (0.8-4.8) 04/11/22 20:41 [place] # (Auto) 0.5 10^3/uL (0.2-0.9) 04/11/22 20:41 Eos # (Auto) 0.0 10^3/uL (0.0-0.8) 04/11/22 20:41 Baso # (Auto) 0.1 10^3/uL (0.0-0.1) 04/11/22 20:41 Nucleated RBC % (auto) 0 % 04/11/22 20:41 Nucleated RBCs # 0.0 /100WBC 04/11/22 20:41 Dimorphic RBCs 1+ H 04/11/22 20:41 Anisocytosis 2+ H 04/11/22 20:41 Microcytosis 1+ H 04/11/22 20:41 Target Cells 1+ H 04/11/22 20:41 PT 33.40 SECONDS (12.1-14.9) H 04/11/22 20:41 INR 3.25 (0.8-1.2) H 04/11/22 20:41 Sodium 135 mmol/L (136-145) L 04/11/22 20:41 Potassium 3.9 mmol/L (3.5-5.1) 04/11/22 20:41 Chloride 96 mmol/L (98-107) L 04/11/22 20:41 Carbon Dioxide 29 mmol/L (22-29) 04/11/22 20:41 Anion Gap 13.9 (5-19) 04/11/22 20:41 BUN 15 mg/dL (8-23) 04/11/22 20:41 Creatinine 0.9 mg/dL (0.7-1.2) 04/11/22 20:41 GFR Calculation Not Reportable 04/11/22 20:41 Glucose 110 mg/dL (65-115) 04/11/22 20:41 Calculated Osmolality 281 mOsm/kg (285-295) L 04/11/22 20:41 Lactate 1.7 mmol/L (0.5-2.2) 04/11/22 20:42 Calcium 9.0 mg/dL (8.5-10.5) 04/11/22 20:41 Total Bilirubin 3.7 mg/dL (0.15-1.2) H 04/11/22 20:41 AST 50 U/L (0-40) H 04/11/22 20:41 ALT 26 U/L (0-41) 04/11/22 20:41 Alkaline Phosphatase 113 U/L (40-130) 04/11/22 20:41 NT-Pro-B Natriuret Pep 6064 pg/mL (0-125) H 04/11/22 20:42 Total Protein 6.8 g/dL (6.6-8.7) 04/11/22 20:41 Albumin 3.4 g/dL (3.5-5.2) L 04/11/22 20:41 Globulin 3.4 g/dL (1.3-4.6) 04/11/22 20:41 Urine Color Dark yellow (Yellow) 04/11/22 23:03 Urine Appearance Cloudy (CLEAR) A 04/11/22 23:03 Urine pH 5 (5-7) 04/11/22 23:03 Ur Specific [place] 1.015 (1.005-1.030) 04/11/22 23:03 Urine Protein 2+ (Negative) H 04/11/22 23:03 Urine Glucose (UA) Norm (Normal) 04/11/22 23:03 Urine Ketones Negative (Negative) 04/11/22 23:03 Urine Blood 3+ (Negative) H 04/11/22 23:03 Urine Nitrate Negative (Negative) 04/11/22 23:03 Urine Bilirubin 1+ (Negative) H 04/11/22 23:03 Urine Urobilinogen 4 mg/dL (Negative) H 04/11/22 23:03 Ur Leukocyte Esterase 2+ (Negative) H 04/11/22 23:03 Urine RBC Too numerous to cnt /hpf (0-2) H 04/11/22 23:03 Urine WBC Too numerous to cnt /hpf (0-5) H 04/11/22 23:03 Ur Squamous Epith Cells 0-4 /hpf (0-5) H 04/11/22 23:03 Amorphous Sediment Not Reportable 04/11/22 23:03 Urine Bacteria 4+ /hpf (NONE) H 04/11/22 23:03 Discharge Plan Discharge Patient Disposition: Admitted As Inpatient Clinical Impression: Acute cystitis, Acute hypotension Condition: Stable Prescriptions: No Action rosuvastatin 20 mg tablet 20 mg PO DAILY nitroglycerin [Nitrostat] 0.4 mg tablet, sublingual 0.4 mg SUBLINGUAL Q5M PRN cetirizine [All Day Allergy (cetirizine)] 10 mg tablet 10 mg PO DAILY PRN trazodone 50 mg tablet 100 mg PO DAILY loratadine [Allergy Relief (loratadine)] 10 mg tablet 10 mg PO DAILY mexiletine 150 mg capsule 150 mg PO Q8H bumetanide 1 mg tablet 2 mg PO BID levalbuterol tartrate [Xopenex HFA] 45 mcg/actuation HFA aerosol inhaler 2 inh inhalation Q6H PRN (Reason: shortness of breath or wheezing) Qty: 15 3RF Incruse Ellipta 62.5 mcg/actuation blister with device 1 inh inhalation DAILY Qty: 30 3RF metoprolol succinate 50 mg tablet extended release 24 hr 25 mg PO BID spironolactone 25 mg tablet 12.5 mg PO DAILY pantoprazole 40 mg tablet,delayed release (DR/EC) 40 mg PO DAILY ciprofloxacin HCl 500 mg tablet 500 mg PO BID 10 Days Qty: 20 0RF finasteride 5 mg tablet See Rx Instructions .ROUTE .COMPLEX Qty: 90 3RF Dose Instruction: Take 1 tablet by mouth once daily Rx Instructions: Take 1 tablet by mouth once daily tamsulosin 0.4 mg capsule See Rx Instructions .ROUTE .COMPLEX Qty: 180 3RF Dose Instruction: Take 1 capsule by mouth twice daily Rx Instructions: Take 1 capsule by mouth twice daily warfarin 2.5 mg tablet 2.5 mg PO DAILY 90 Days Qty: 90 1RF potassium chloride 10 mEq tablet extended release See Rx Instructions PO DAILY PRN (Reason: hypokalemia) 30 Days Qty: 150 0RF Rx Instructions: take 3 tabs in the morning, 2 in the evening orally daily PRN; fluconazole 150 mg tablet 150 mg PO DAILY Qty: 1 0RF Referrals: Rosa Gramajo MD [Primary Care Provider] - Coding Level of Care Code ED Family Program Specialist for Chg Fwd Exam Comprehensive
[2022-04-11] MEDS: cefTRIAXone 1,000 MG in sodium chloride 0.9% (plus) 50 ML 100 MG IV (23:07)
[2022-04-11 23:23] LABS: Add Urine Microscopic? YES; Bilirubin Urine 1+ (Negative); Blood Urine 3+ (Negative); Glucose Urine UA Norm (Normal); Ketones Urine Negative (Negative); Leukocyte Esterase Urine 2+ (Negative); Nitrate Urine Negative (Negative); Protein Urine 2+ (Negative); Specific Gravity, Urine 1.015 (1.005-1.030); Urine Appearance Cloudy (CLEAR); Urine Color Dark Yellow (Yellow); Urobilinogen Urine 4 mg/dL (Negative); pH Urine 5 (5-7)
[2022-04-11 23:24] LABS: Add Urine Culture? Yes; Bacteria Urine 4+ /hpf; RBC Urine TOO NUMEROUS TO CNT /hpf (0-2); Squamous Epithelial Cell Urine 0-4 /hpf (0-5); WBC Urine TOO NUMEROUS TO CNT /hpf (0-5)
[2022-04-11 23:30] VITALS: BP 84/69; PULSE 87; RESP 24; O2SAT 97
--- NOTE | 2022-04-11 23:51 | ECG_ITS ---
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 Measurements Intervals [place] Rate: 83 P: 0 [place]: 0 QRS: -43 QRSD: 190 T: 63 QT: 510 QTc: 600 Interpretive Statements ELECTRONIC VENTRICULAR PACEMAKER Compared to ECG 08/27/2018 00:17:31 Myocardial infarct finding now present Atrial-paced complex(es) or rhythm no longer present Electronically Signed On 04-12-2022 12:51:49 HEAVY DUTY MECHANIC by Radha Pascal M.D. [email or web address] va medical [id number]
[2022-04-12] VITALS (11 sets, daily range): BP systolic 87–94; BP diastolic 50–65; PULSE 65–91; RESP 16–20; TEMP 36.3–36.7; O2SAT 90–100
--- NOTE | 2022-04-12 00:24 | USCV_ITS ---
WilianPhillip cano Age: 71 Gender: M : 1950 Exam Date: 04/12/2022 01:02 Ordering Phys: Kentrell Erwin MD Technologist: LAURA Exam Location: [facility] [place] Indication: sob. hx pacer / defibrillator since 2004 BP: 92 / 65 HR: 122 Rhythm: Atrial fibrillation Technical Quality: Adequate MEASUREMENTS (Male / Female) Normal Values 2D ECHO LV Diastolic Diameter PLAX 7.3 cm 4.2 - 5.9 / 3.9 - 5.3 cm LV Systolic Diameter PLAX 6.6 cm IVS Diastolic Thickness 0.9 cm 0.6 - 1.0 / 0.6 - 0.9 cm IVS Systolic Thickness 0.7 cm LVPW Diastolic Thickness 1.1 cm 0.6 - 1.0 / 0.6 - 0.9 cm LVPW Systolic Thickness 1.3 cm LVOT Diameter 2.1 cm LV Ejection Fraction 2D Teich 19.8 % LV Ejection Fraction MOD 2C 22.4 % LV Ejection Fraction 2C AL 23.6 % LA Diameter 5.9 cm LA Width 4.7 cm LA Height 8.1 cm RA Width 6.3 cm RA Height 7.1 cm Aorta at Sinotubular Diameter 2.0 cm IVC Diameter 3.6 cm M-MODE Aortic Annulus Diameter 4.7 cm LA Ao Ratio MM 1.2 MV E Point Septal Separation 2.7 cm DOPPLER AV Peak Velocity 82.0 cm/s LVOT Peak Velocity 52.0 cm/s AV Area Cont Eq vti 1.9 cm squared AV Area Cont Eq pk 2.2 cm squared MV Area PHT 9.6 cm squared MV E' Velocity 55.5 cm/s Mitral E to MV E' Ratio 13.3 Mitral E to LV E' Lateral Ratio 12.0 Mitral E to LV E' Septal Ratio 14.8 TR Peak Velocity 250.7 cm/s TR Peak Gradient 25.1 mmHg TV Peak E Velocity 44.0 cm/s Right Atrial Pressure 15.0 mmHg Pulmonary Artery Systolic Pressu 40.1 mmHg FINDINGS Left Ventricle Markedly dilated left ventricle. Severely decreased left ventricular systolic function. Left ventricular ejection fraction is estimated at 10 %. Global left ventricular hypokinesis. Abnormal diastolic function. Abnormal septal motion consistent with pacemaker. Right Ventricle Mildly increased right ventricular size. Mildly decreased right ventricular systolic function. Right ventricular systolic pressure 44 mmHg. Pacemaker wire visualized in the right ventricle. Right Atrium Normal right atrial size. Pacemaker wire in the right atrial cavity. Left Atrium Moderately increased left atrial size. Mitral Valve Mild mitral annular calcification. Mildly thickened mitral valve. No mitral valve stenosis. Moderate mitral valve regurgitation. Aortic Valve Aortic valve not well visualized. No aortic valve stenosis. No aortic valve regurgitation. Tricuspid Valve Structurally normal tricuspid valve. No tricuspid valve stenosis. Mild tricuspid valve regurgitation. Pulmonic Valve Pulmonic valve not well visualized. Pericardium No pericardial effusion. Aorta Normal size aortic root and proximal ascending aorta. IVC Dilated IVC with no respiratory variation. CONCLUSIONS 1. Markedly dilated left ventricle. Severely decreased left ventricular systolic function. Left ventricular ejection fraction is estimated at 10 %. Global left ventricular hypokinesis. Abnormal diastolic function. 2. Mildly increased right ventricular size. Mildly decreased right ventricular systolic function. 3. Mild pulmonary hypertension with pulmonary pressure estimated at 44 mmHg. 4. Moderate mitral valve regurgitation. 5. No prior similar studies to compare. Radah Pascal MD (Electronically Signed) Final Date: 12 April 2022 12:44 S
--- NOTE | 2022-04-12 00:32 | PM.HP ---
Providers/Chief Complaint Primary Care Provider: Rosa Gramajo MD Chief Complaint: bleeding in bladder area? History of Present Illness Phillip Roman is a 71 year old male with a past medical history of atrial fibrillation, recent history of cardiac ablation at [facility], currently Coumadin on hold due to supratherapeutic INR, history of systolic and diastolic CHF on Bumex, CAD, recent hospitalization at [facility] for CHF exacerbation, according to patient over 15 L diuresis, history of lung mass, history of lung cancer, status post right lower lobectomy, history of hilar lymphadenopathy, history of emphysema, COPD, status post AICD placement, history of chronically low blood pressures at least since the last month who presents to [facility] due to complaints of weakness, fatigue, and edema, shortness of breath, lower pelvic pain, hematuria concerns for recurrent UTI. Patient tells me that he has been on ciprofloxacin for recurrent UTI, he suffered an increased INRs his Coumadin has been held for the last 5 days. He continues to have dysuria and hematuria, no flank pain, no back pain. However he tells me that he has experienced increased shortness of breath, increased lower extremity edema he thinks his heart failure is back, he was diuresed over 15 L at [facility], he also had a ablation at [facility] for recurrent A. fib. He tells me that he has been referred to [facility] for further ablation procedures as he continues to have episodes with A. fib. Currently denies any chest pain, palpitations, no lightheadedness, dizziness. He also reports increased abdominal distention, increased edema Review of Systems Const: Denies: fever(s) Eyes: Denies: change in vision Card: Reports: edema; Denies: chest pain or palpitations Resp: Reports: dyspnea; Denies: non-productive cough GI: Denies: abdominal pain, nausea or vomiting : Reports: difficulty urinating and dysuria Neuro: Denies: headache(s) Medications/Allergies Home Medications Medication Instructions Recorded Confirmed Last Taken Type nitroglycerin 0.4 mg sublingual 0.4 mg sublingual Q5M PRN 08/22/19 04/03/22 Unknown History tablet (Nitrostat) rosuvastatin 20 mg tablet 20 mg PO DAILY 08/22/19 04/03/22 Unknown History finasteride 5 mg tablet See Rx Instructions .Route 11/23/20 04/03/22 Unknown Rx .COMPLEX #90 tabs tamsulosin 0.4 mg capsule See Rx Instructions .Route 07/21/21 04/03/22 Unknown Rx .COMPLEX #180 caps pantoprazole 40 mg tablet,delayed 40 mg PO DAILY 01/31/22 04/03/22 Unknown History release bumetanide 1 mg tablet 2 mg PO BID 03/13/22 04/03/22 Unknown History cetirizine 10 mg tablet (All Day 10 mg PO DAILY PRN 03/13/22 04/03/22 Unknown History Allergy (cetirizine)) metoprolol succinate 50 mg 25 mg PO BID 03/13/22 04/03/22 Unknown History tablet,extended release 24 hr spironolactone 25 mg tablet 12.5 mg PO DAILY 03/13/22 04/03/22 Unknown History trazodone 50 mg tablet 100 mg PO DAILY 03/13/22 04/03/22 Unknown History warfarin 2.5 mg tablet 2.5 mg PO DAILY 90 days #90 tabs 03/14/22 04/03/22 Unknown Rx potassium chloride 10 mEq See Rx Instructions PO DAILY PRN 03/17/22 04/03/22 Unknown Rx tablet,extended release hypokalemia 30 days #150 tabs loratadine 10 mg tablet (Allergy 10 mg PO DAILY 03/23/22 04/03/22 Unknown History Relief (loratadine)) mexiletine 150 mg capsule 150 mg PO Q8H 03/23/22 04/03/22 Unknown History fluconazole 150 mg tablet 150 mg PO DAILY #1 tab 03/29/22 04/03/22 Unknown Rx levalbuterol tartrate 45 2 inh inhalation Q6H PRN shortness 03/29/22 04/03/22 Unknown Rx mcg/actuation aerosol inhaler of breath or wheezing #15 grams (Xopenex HFA) umeclidinium 62.5 mcg/actuation 1 inh inhalation DAILY #30 ea 03/29/22 04/03/22 Unknown Rx blister powder for inhalation (Incruse Ellipta) ciprofloxacin HCl 500 mg tablet 500 mg PO BID 10 days #20 tabs 04/03/22 04/03/22 Unknown Rx Allergies Allergy/AdvReac Type Severity Reaction Status Date / Time adhesive tape Allergy rash Verified 03/29/22 12:42 amiodarone Allergy liver Verified 03/29/22 12:42 problems atorvastatin [From Lipitor] Allergy Unknown Verified 03/29/22 12:42 empagliflozin Allergy rash Verified 03/29/22 12:42 niacin Allergy Unknown Verified 03/29/22 12:42 ipratroprium albuterol Allergy ALGY-Rash Uncoded 03/29/22 12:42 spiriva Allergy itching Uncoded 03/29/22 12:42 PFSH Acute PFSH: Medical History Allergic rhinitis BPH loc w urin obs/LUTS Cardiac defibrillator in place Cardiomegaly CHF (congestive heart failure) Ex-smoker GERD (gastroesophageal reflux disease) Hearing loss of both ears History of lung cancer Hypercholesterolemia Pacemaker Warfarin anticoagulation Surgical History History of cardiac defibrillator placement History of cardiac radiofrequency ablation History of cholecystectomy History of femur fracture left, surgical repair History of lobectomy of lung right lower on 01/29/2017 History of permanent cardiac pacemaker placement History of umbilical hernia repair Family History Father No problems noted. 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 History of recent travel: No Vitals/I&O/Wt Last Vital Signs Temp 98.2 F 04/11/22 19:08 Pulse 87 04/11/22 23:30 Resp 24 H 04/11/22 23:30 BP 84/69 04/11/22 23:30 Pulse Ox 97 04/11/22 23:30 O2 Del Method 04/11/22 23:30 04/11/22 04/11/22 04/12/22 14:59 22:59 06:59 Intake Total 1050 / 1050 Balance 1050 / 1050 Weight last 48 hrs Weight 92.079 kg Physical Exam Const: COMMON NORMALS: no acute distress and patient oriented x3 HENMT: COMMON NORMALS: normocephalic HEAD & SCALP: normocephalic Eye: COMMON NORMALS: Equal, round and reactive pupils present and EOMs intact bilaterally Neck/C-Spine: COMMON NORMALS: no JVD Lymph: LYMPHATIC: no lymphadenopathy noted Resp: COMMON NORMALS: normal respiratory effort, No retractions, No use of accessory muscles and clear to auscultation bilaterally AUSCULTATION: crackles Cardio: COMMON NORMALS: no JVD, regular rate, regular rhythm, S1 normal heart sound present and S2 normal heart sound present RATE: regular rate RHYTHM: regular rhythm HEART SOUNDS: S1 normal heart sound present and S2 normal heart sound present GI: COMMON NORMALS: Normal to inspection, nondistended, normoactive bowel sounds present, Soft to palpation, non-tender, no masses and no bruits PALPATION: Yes Soft to palpation OTHER: Abdominal wall edema, abdominal distention Back/Pelvis: OTHER: 2+ pitting edema bilateral extremity Extremity: COMMON NORMALS: no calf tenderness Neuro: COMMON NORMALS: patient oriented x3, CN's II-XII intact bilaterally and moves all extremities Psych: COMMON NORMALS: mental status grossly normal Urinary Catheter Management: [place]: Cath Placed During This Visit: yes Urinary Catheter Date of Insertion: 04/11/22 Urinary Catheter Time of Insertion: 23:00 Data 04/11/22 20:41 04/11/22 20:41 A&P Assessment and plan (1) Acute cystitis: (2) Acute hypotension: (3) BPH loc w urin obs/LUTS: (4) CHF (congestive heart failure): (5) Supratherapeutic INR: (6) Hyperbilirubinemia: (7) Transaminitis: (8) CHF exacerbation: Plan UTI -CT scan shows cystitis, with concerns for infected large posterior right urinary bladder diverticulum -Continue Rocephin -We will have to discuss with urology in the morning based on clinical progress -Pro-Gabriel, CRP -Blood cultures, urine cultures Hypotension -Has chronic hypotension, review of patient's outpatient visit shows chronically low blood pressures -Hold metoprolol -Lactic acid within normal limits -Follow blood cultures as above -Midodrine 10 every 8 hours Hyperbilirubinemia, transaminitis, with anasarca, with hypoalbuminemia -CT scan does show enlarged liver 12.5, diffuse fatty infiltration, ascites -GGT, lipase, acute hep panel -Likely cardiac related, 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 Systolic CHF exacerbation -Has evidence of volume overload -Continue Lasix 40 IV twice daily -Cardiac echo History of atrial fibrillation status post ablation, telemetry monitoring, continue mexiletine Supratherapeutic INR, Coumadin has been held for the last 5 days, INR 3.125, continue to hold COPD, emphysema, monitor not in exacerbation Serial EKGs, serial troponins, telemetry monitoring Attestations Medical Necessity Statement*: Patient requires hospitalization, inpatient, greater than 2 midnights, due to UTI, fluid overload, systolic CHF exacerbation, transaminitis, hyperbilirubinemia Coding Level of Care Code Acute Medicaid Specialist for Chg Fwd Diagnoses Acute cystitis N30.00 Acute hypotension I95.9 BPH loc w urin obs/LUTS N40.1 CHF (congestive heart failure) I50.9 Supratherapeutic INR R79.1 Hyperbilirubinemia E80.6 Transaminitis R74.01 CHF exacerbation I50.9
[2022-04-12 01:08] LABS: Troponin(5th) Baseline 27 ng/L (0-15)
[2022-04-12 01:11] LABS: Hepatitis A Antibody IgM Non-Reactive (Nonreactive); Hepatitis B Core IgM Non-Reactive (Nonreactive); Hepatitis B Surface Antigen Non-Reactive (Nonreactive); Hepatitis C Virus Antibody Non-Reactive (Nonreactive)
[2022-04-12 01:15] LABS: Free T4 Free Thyroxine 1.05 ng/dL (0.82-1.77); Procalcitonin 0.04 ng/mL (0-0.5); T3 Free 2.4 PG/ML (2.0-4.4); Thyroid Stimulating Hormone 6.78 uIU/mL (0.27-4.20)
[2022-04-12 01:26] LABS: Amylase 39 U/L (28-100); C Reactive Protein 7.2 mg/L (0.0-4.9); Lipase 24 U/L (13-60); Total Bilirubin 3.6 mg/dL (0.15-1.2)
[2022-04-12 01:32] LABS: Acetaminophen < 5.0 ug/mL (10-30); Alcohol Level < 10 mg/dL (0-10)
[2022-04-12 01:49] LABS: Ferritin 138 ng/mL (30-400); Gamma Glutamyl Transferase 200 U/L (8-61)
--- NOTE | 2022-04-12 01:51 | ECG_ITS ---
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 Measurements Intervals [place] Rate: 89 P: 0 [place]: 0 QRS: -59 QRSD: 196 T: 71 QT: 412 QTc: 502 Interpretive Statements ELECTRONIC VENTRICULAR PACEMAKER Frequent nuclear ectopics MARKED ST ELEVATION, CONSIDER LATERAL INJURY [MARKED ST ELEVATION W/O NORMALLY INFLECTED T-WAVE IN I/aVL/V5/V6] ACUTE MA Compared to ECG 04/12/2022 00:09:59 No significant changes Electronically Signed On 04-13-2022 21:19:36 STAMPING MACHINE OPERATOR by Cole Conde M.D. [id number]
[2022-04-12 02:41] LABS: Troponin 5 2HR 30.36 ng/L (0-15); Troponin 5 2HR Delta 3.36 ABS# (0-10)
[2022-04-12] MEDS: midodrine 5 mg TABLET 10 MG PO ×3 (02:52→17:19)
[2022-04-12] MEDS: famotidine 20 mg/2 mL INJ IVP ×2 (03:19→14:31)
[2022-04-12] MEDS: FUROsemide 10 mg/mL SDV 4mL 40 MG IVP ×3 (03:19→17:18)
[2022-04-12 04:22] LABS: NT Pro B Type Natriuretic Pept 6169 pg/mL (0-125)
[2022-04-12 04:37] LABS: Troponin 5 6HR 30.91 ng/L (0-15)
[2022-04-12 04:43] LABS: Troponin 5 6HR Delta 3.91 ng/L (0-12)
--- NOTE | 2022-04-12 05:51 | ECG_ITS ---
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 Measurements Intervals [place] Rate: 81 P: 0 DC: 0 QRS: 168 QRSD: 209 T: -23 QT: 501 QTc: 584 Interpretive Statements ELECTRONIC VENTRICULAR PACEMAKER ABNORMAL RHYTHM ECG Compared to ECG 04/12/2022 01:58:08 ST (T wave) deviation no longer present Myocardial infarct finding no longer present Electronically Signed On 04-12-2022 16:53:17 [employer]ING [employer] by Radha Pascal M.D. [id number]
[2022-04-12] MEDS: pantoprazole DR 40 mg Tablet PO (08:40)
[2022-04-12] MEDS: atorvastatin 40 mg Tablet 80 MG PO (08:40)
[2022-04-12] MEDS: finasteride 5 mg Tablet PO (08:40)
[2022-04-12] MEDS: tamsulosin 0.4 mg Capsule PO ×2 (08:40→17:18)
[2022-04-12] MEDS: spironolactone 25 mg Tablet 12.5 MG PO (08:40)
[2022-04-12] MEDS: cefTRIAXone 1,000 MG in sodium chloride 0.9% (plus) 50 ML 100 MG IV (11:35)
[2022-04-12 14:10] LABS: Procalcitonin 0.04 ng/mL (0-0.5); Vitamin B12 730 pg/mL (232-1245)
[2022-04-12 14:21] LABS: Alanine Aminotransferase 24 U/L (0-41); Albumin Level 3.2 g/dL (3.5-5.2); Alkaline Phosphatase 105 U/L (40-130); Anion Gap 16.4 (5-19); Aspartate Amino Transferase 40 U/L (0-40); Blood Urea Nitrogen 15 mg/dL (8-23); Calcium 8.8 mg/dL (8.5-10.5); Carbon Dioxide 26 mmol/L (22-29); Chloride 96 mmol/L (98-107); Globulin 3.1 g/dL (1.3-4.6); Glucose 59 mg/dL (65-115); Iron 148 ug/dL (59-158); Osmolality Calculated 279 mOsm/kg (285-295); Percent Saturation 46.1 % (20-50); Potassium 3.4 mmol/L (3.5-5.1); Sodium 135 mmol/L (136-145); Total Bilirubin 3.7 mg/dL (0.15-1.2); Total Iron Binding Capacity 321 mcg/dl; Total Protein 6.3 g/dL (6.6-8.7); Unsaturated Iron Binding 173 ug/dL (112-347)
[2022-04-12 14:25] LABS: Folate Level 6.1 ng/mL (4.5-32.2)
--- NOTE | 2022-04-12 16:22 | PM.PN ---
Subjective Subjective: Admitted overnight. H&P and labs appreciated. Today morning seen with family at bedside. Patient is sitting up in bed, on room air, looking visibly tachypneic on minimal ambulation or talking. States that he is at his baseline breathing effort. Denies any difficulty in breathing. Alvarenga in place. Had a long goals of care discussion with patient. We discussed that unfortunately he has severe ischemic cardiomyopathy with a EF of 10% which is unamenable to fix because of difficulty to revascularize, supratherapeutic INR because of liver dysfunction in setting of congestive biventricular heart failure, symptoms suggestive of gastric congestion along with hepatic congestion which she has developed again after being discharged recently from [facility] where he was 15 L negative. We discussed also with borderline blood pressures of systolic mostly in mid 80s to low 90s since recently from earlier this year as compared to when his blood pressures are more than 120s in the past is most likely secondary to related cardiogenic shock secondary to poor EF. We discussed there are 2 options. We also discussed unfortunately there is no permanent fix. We discussed 1 option would be to transfer him to ICU for pressor support with dopamine and dobutamine for resolution of cardiogenic shock and congestive heart failure for a short while as patient is not a candidate for heart transplant or there is a low chance of his EF improving substantially versus treating him medically on hospice. After discussing further with his family he decided to go hospice route. Vitals/I&O/Wt Last Vital Signs Temp 98.0 F 04/12/22 12:00 Pulse 91 04/12/22 15:14 Resp 18 04/12/22 12:00 BP 87/50 04/12/22 12:00 Pulse Ox 96 04/12/22 15:14 O2 Del Method 04/12/22 15:14 O2 Flow Rate 1 04/12/22 04:00 04/12/22 04/12/22 04/12/22 06:59 14:59 22:59 Intake Total 1670 / 1670 410 / 410 Output Total 1200 / 1200 Balance 1670 / 1670 -790 / -790 Weight last 48 hrs Weight 92.079 kg Physical Exam Const: COMMON NORMALS: no acute distress and patient oriented x3 HENMT: COMMON NORMALS: normocephalic HEAD & SCALP: normocephalic Eye: COMMON NORMALS: Equal, round and reactive pupils present and EOMs intact bilaterally PUPIL: Yes Equal, round and reactive pupils present Neck/C-Spine: COMMON NORMALS: no JVD Lymph: LYMPHATIC: no lymphadenopathy noted Resp: COMMON NORMALS: normal respiratory effort, No retractions, No use of accessory muscles and clear to auscultation bilaterally AUSCULTATION: clear to auscultation bilaterally and crackles Cardio: COMMON NORMALS: no JVD, regular rate, regular rhythm, S1 normal heart sound present and S2 normal heart sound present RATE: regular rate RHYTHM: regular rhythm HEART SOUNDS: S1 normal heart sound present and S2 normal heart sound present GI: COMMON NORMALS: Normal to inspection, nondistended, normoactive bowel sounds present, Soft to palpation, non-tender, no masses and no bruits PALPATION: Yes Soft to palpation OTHER: Abdominal wall edema, abdominal distention Back/Pelvis: OTHER: 2+ pitting edema bilateral extremity Extremity: COMMON NORMALS: no calf tenderness Neuro: COMMON NORMALS: patient oriented x3, CN's II-XII intact bilaterally and moves all extremities Psych: COMMON NORMALS: mental status grossly normal Urinary Catheter Management: Alvarenga: Cath Placed During This Visit: yes Reason for Continuing Indwelling Catheter: Accurate Measurement of Urinary Output in Critically Ill Patients Urinary Catheter Date of Insertion: 04/11/22 Urinary Catheter Time of Insertion: 23:00 Data 04/11/22 20:41 04/12/22 03:24 Micro: Microbiology 04/12/22 03:26 Blood Culture - Preliminary Blood SPECIMEN COLLECTED 04/12/22 03:24 Blood Culture - Preliminary Blood SPECIMEN COLLECTED A&P Assessment and plan (1) Acute cystitis: (2) Acute hypotension: (3) BPH loc w urin obs/LUTS: (4) CHF (congestive heart failure): (5) Supratherapeutic INR: In setting of congestive hepatic dysfunction from biventricular heart failure. Hemoglobin stable. Hold off on Coumadin. Most likely will transition over to NOAC. Will confirm with patient given hospice transition. (6) Hyperbilirubinemia: (7) Transaminitis: (8) CHF exacerbation: (9) Ischemic cardiomyopathy: (10) Cardiogenic shock: (11) Goals of care, counseling/discussion: Plan UTI -CT scan shows cystitis, with concerns for infected large posterior right urinary bladder diverticulum -Continue Rocephin. Follow-up blood and urine culture. Urine culture recently from 04/03 showed E. coli sensitive to levofloxacin. Alvarenga catheterization. Hypotension secondary to cardiogenic shock in setting of ischemic cardiomyopathy with severe low EF of 10%. 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 Follow blood culture. We can transition to oral Levaquin to finish a 14-day course. Continue with IV Lasix in setting of cardiogenic shock nonischemic cardiomyopathy leading to congestive heart failure. Transition to hospice care. Oral potassium replacement. Attestations Medical Necessity Statement*: Requires further hospitalization for management of UTI, ischemic cardiomyopathy with a EF of 10%, congestive heart failure as hospice is set up Time Spent in Patient Care: Greater than 35 minutes Coding Level of Care Code Acute Senior Center Manager for Chg Fwd Diagnoses Acute cystitis N30.00 Acute hypotension I95.9 BPH loc w urin obs/LUTS N40.1 CHF (congestive heart failure) I50.9 Supratherapeutic INR R79.1 Hyperbilirubinemia E80.6 Transaminitis R74.01 CHF exacerbation I50.9 Ischemic cardiomyopathy I25.5 Cardiogenic shock R57.0 Goals of care, counseling/discussion Z71.89
[2022-04-12] MEDS: potassium chloride ER 20 mEq Tablet 40 MEQ PO (17:19)
[2022-04-12] MEDS: trazodone 100 mg Tablet PO (20:40)
[2022-04-12 22:57] LABS: Glucose Point of Care 96 mg/dL (70-110)
--- NOTE | 2022-04-12 22:57 | CTR_ITS ---
PROCEDURE INFORMATION: Exam: CT Head Without Contrast Exam date and time: 04/12/2022 11:02 PM Age: 71 years old Clinical indication: Stroke-like symptoms; Speech disturbance; RT upper extremity weakness; Additional info: Possible CVA TECHNIQUE: Imaging protocol: Computed tomography of the head without contrast. Radiation optimization: All CT scans at this facility use at least one of these dose optimization techniques: automated exposure control; mA and/or kV adjustment per patient size (includes targeted exams where dose is matched to clinical indication); or iterative reconstruction. Other technique: STROKE PROTOCOL was implemented. COMPARISON: CT head wo/w con [id number] 01/18/2017 10:45 AM RADIATION DOSE METRICS: Total DLP (mGy-cm): 1091.28 FINDINGS: Brain: There is mild cerebral atrophy. There is moderate diffuse heterogeneity of the white matter attenuation, consistent with chronic white matter ischemic changes. Negative for intracranial hemorrhage. Negative for intracranial mass. Negative for mass effect on the brain. Chandra matter and white matter interfaces are preserved. Cerebral ventricles: No ventriculomegaly. Paranasal sinuses: Visualized sinuses are unremarkable. No fluid levels. Mastoid air cells: Visualized mastoid air cells are well aerated. Bones/joints: Unremarkable. No acute fracture. Soft tissues: Unremarkable. CT/CT head wo con* [id number] IMPRESSION: Negative acute intracranial abnormality. ASSESSMENT: ASPECTS ([place] Stroke Program Early CT Score) is 10.
[2022-04-12 23:21] LABS: INR 2.23 (0.8-1.2)
[2022-04-12 23:25] LABS: Ammonia 29 umol/L (16-60)
--- NOTE | 2022-04-12 23:43 | CTR_ITS ---
PROCEDURE INFORMATION: Exam: CTA Head With Contrast, Arteriography Exam date and time: 04/13/2022 12:20 AM Age: 71 years old Clinical indication: Stroke-like symptoms; Altered mental status/memory loss and speech disturbance; RT upper extremity weakness; Additional info: Sudden onset of slurred speech, confusion, and RT upper ext weakness. History of TIA. TECHNIQUE: Imaging protocol: Computed tomographic angiography of the head with contrast. Exam focused on the arteries. 3D rendering (Not supervised by radiologist): MIP and/or 3D reconstructed images were created by the technologist. Radiation optimization: All CT scans at this facility use at least one of these dose optimization techniques: automated exposure control; mA and/or kV adjustment per patient size (includes targeted exams where dose is matched to clinical indication); or iterative reconstruction. Contrast material: OMNI 350; Contrast volume: 250 ml; Contrast route: INTRAVENOUS (IV); COMPARISON: CT head wo con* [id number] 04/12/2022 11:02 PM RADIATION DOSE METRICS: Total DLP (mGy-cm): 1217.46 FINDINGS: ANTERIOR CIRCULATION: Right internal carotid artery: Intracranial segment is patent with no significant stenosis. No aneurysm. Calcified plaques in the cavernous segment. Mild severity stenosis. Right middle cerebral artery: No occlusion or significant stenosis. No aneurysm. Right anterior cerebral artery: No occlusion or significant stenosis. No aneurysm. Left internal carotid artery: Intracranial segment is patent with no significant stenosis. No aneurysm. Diffuse calcified plaques in the cavernous segment. Mild severity stenosis. Left middle cerebral artery: No occlusion or significant stenosis. No aneurysm. Left anterior cerebral artery: No occlusion or significant stenosis. No aneurysm. POSTERIOR CIRCULATION: Right vertebral artery: No occlusion or significant stenosis. No aneurysm. Left vertebral artery: No occlusion or significant stenosis. No aneurysm. Basilar artery: No occlusion or significant stenosis. No aneurysm. Right posterior cerebral artery: No occlusion or significant stenosis. No aneurysm. Left posterior cerebral artery: No occlusion or significant stenosis. No aneurysm. Brain: No definite mass, mass effect, or midline shift. Cerebral ventricles: No ventriculomegaly. Bones/joints: Unremarkable. No acute fracture. Soft tissues: Unremarkable. PROCEDURE INFORMATION: Exam: CTA Neck With Contrast Exam date and time: 04/13/2022 12:20 AM Age: 71 years old Clinical indication: Stroke-like symptoms; Altered mental status/memory loss and speech disturbance; RT upper extremity weakness; Additional info: Sudden onset of slurred speech, confusion, and RT upper ext weakness. History of TIA. TECHNIQUE: Imaging protocol: Computed tomographic angiography of the neck with contrast. 3D rendering (Not supervised by radiologist): MIP and/or 3D reconstructed images were created by the technologist. Radiation optimization: All CT scans at this facility use at least one of these dose optimization techniques: automated exposure control; mA and/or kV adjustment per patient size (includes targeted exams where dose is matched to clinical indication); or iterative reconstruction. Contrast material: OMNI 350; Contrast volume: 250 ml; Contrast route: INTRAVENOUS (IV); COMPARISON: CT head wo con* [id number] 04/12/2022 11:02 PM RADIATION DOSE METRICS: Total DLP (mGy-cm): 1217.46 FINDINGS: Right common carotid artery: No stenosis. No dissection or occlusion. Right internal carotid artery: Small mostly calcified plaque volume proximal right ICA. Minimal stenosis. Negative for dissection. Right external carotid artery: No occlusion or stenosis of the origin. Left common carotid artery: No stenosis. No dissection or occlusion. Left internal carotid artery: Large mostly calcified plaque volume proximal left ICA. Mild severity stenosis. Negative for dissection. Left external carotid artery: No occlusion or stenosis of the origin. Right vertebral artery: No stenosis. No dissection or occlusion. Left vertebral artery: No stenosis. No dissection or occlusion. Soft tissues: Normal. No significant soft tissue swelling. Bones/joints: No acute fracture. CT/CT angio headneck* [id number] IMPRESSION: No large vessel occlusion. IMPRESSION: 1. Less than 50% carotid artery stenosis. 2. Negative for vascular occlusion in the neck. REFERENCES: NASCET CRITERIA. The degree of stenosis in the cervical segment of the internal carotid artery is based on NASCET criteria. Normal is no stenosis. Mild is less than 50% stenosis. Moderate is 50-69% stenosis. Severe is 70% to 99% stenosis. Total occlusion is no detectable patent lumen.
[2022-04-13 00:25] VITALS: BP 89/62; PULSE 89; RESP 17; TEMP 36.7; O2SAT 96
[2022-04-13] MEDS: iohexol 350 mg/mL 500 mL Btl (per mL) IV (00:30)
[2022-04-13 00:55] VITALS: BP 93/63; PULSE 79; RESP 18; O2SAT 98
[2022-04-13] MEDS: midodrine 5 mg TABLET 10 MG PO ×2 (01:02→12:02)
[2022-04-13] MEDS: aspirin 325 mg EC Tablet PO (01:03)
--- NOTE | 2022-04-13 01:33 | PC.NURSE ---
Found pt in bathroom area after he had pressed the bathroom help light. Pt was standing at sink, confused and bleeding from penis. He had pulled out his catheter. He stated what happened, where am i? he didnt know his name, or why he had a catheter. His speech was very delayed and slurred. Proceeded to get the patient in wheel chair and wheeled back to the bed. Pt was unable to keep eyes open and was rolling back into his head. At this time with the help of the aid we got the patient back to the bed and got a set of vitals. Meanwhile got the charge nurse to assess and it was determined very quickly the patient had a change in mental status and proceeded to notify the phys. He came to the floor very quickly and assessed patient. Stroke code was called. Labs were drawn, and stat CT verbally ordered. He was rushed to CT by myself and ICU nurse. Family was called at this time as well.
[2022-04-13] MEDS: famotidine 20 mg/2 mL INJ IVP (01:43)
[2022-04-13] MEDS: ondansetron 2 mg/ML SDV 2 mL 4 MG IVP (01:59)
[2022-04-13 02:04] LABS: Partial Thromboplastin Time 35.9 SECONDS (23.9-36.7)
[2022-04-13 02:14] LABS: Platelet Count 123 10^3/cmm (130-400)
[2022-04-13] MEDS: heparin drip 25,000 UNIT/500 ML PREMIX 26 UNIT IV (02:15)
--- NOTE | 2022-04-13 02:38 | P.PNCC_ITS ---
Critical Care Event Note The high probability of a clinically significant, sudden or life threatening deterioration of the patient's [] system(s) required my full and direct attention, intervention and personal management. The critical care time is as shown. This time is in addition to time spent performing any reported procedures but includes the following: [x] Data and vital sign review and interpretation [x] Patient assessment, examination and intervention [x] Documentation [x] Medication orders and management Critical Care Time Code activated: No Critical Care Time (min): 60 Additional information about critical care time: Patient's last known well normal was 2039, Nursing staff came in and saw patient at roughly 2239, noticed that patient was not behaving appropriately, increasingly confused, there is a sudden change in his mentation -I was asked to come and evaluate patient -I evaluated patient around 2244, patient was alert to person, not to place, not to time, having productive aphasia according to nursing staff he was complaining of numbness in the top of his head, on his face, -He had right upper extremity and right lower extremity weakness, right upper extremity would fall against gravity, right lower extremity would fall against gravity, compared to the left, strength was roughly 3 out of 5 -He had some receptive aphasia, had trouble following commands, trouble following instructions -At this point I had his NIH stroke scale calculated at 10 -Stroke code was called at 2254 -Patient had a CT of the head that showed no acute stroke -INR was 2.23 -Was in the tPA window, however INR was 2.23 -Consulted [facility] neurology -They recommended against tPA -Recommended CTA head and neck, has he has atrial fibrillation, has been off anticoagulation due to supratherapeutic INR, he might qualify for clot retrieval -CTA head and neck showed no acute clot, no large vessel occlusion, less 50% carotid artery stenosis -Recommended medical management -Given aspirin, statin, plans on potentially placing him on Eliquis on discharge switch him to heparin drip -Patient was reevaluated at roughly 0, he is significantly alert and awake, answers all questions appropriately, no facial droop no slurring of his words, has but some word finding difficulty, no receptive aphasia, no significant productive aphasia, strength in upper and lower extremities are 5 out of 5 on the right, right upper lower extremity are held up against gravity, and held up against effort, no trouble swallowing -This patient has had a TIA versus a stroke, will see how he does over the next 24 hours, likely an embolic event -Thus will resume aspirin, statin -Resume heparin drip, will be switched to Eliquis on discharge, or once INR is less than 2 -Continue neurochecks, aspiration precautions, NIH stroke scale, dysphagia screen -PT OT speech therapy eval -We will monitor blood pressures, he runs hypotensive, so we will avoid initiating blood pressure medications -Due to the risk of watershed events -If he develops A. fib with RVR, will have to consider potential Cardizem -Patient and family is at bedside, they voiced understanding, all questions answered, agreed to proceed Coding Level of Care Code Acute Dispatch Specialist for Kecia Tapia
[2022-04-13 02:55] VITALS: BP 102/70; PULSE 79; RESP 18; O2SAT 92
[2022-04-13 04:00] VITALS: BP 114/77; PULSE 80; RESP 16; TEMP 36.3; O2SAT 96
[2022-04-13] MEDS: pantoprazole DR 40 mg Tablet PO (07:54)
[2022-04-13] MEDS: aspirin 81 mg EC Tablet PO (07:54)
[2022-04-13] MEDS: tamsulosin 0.4 mg Capsule PO (07:54)
[2022-04-13] MEDS: atorvastatin 40 mg Tablet 80 MG PO (07:54)
[2022-04-13] MEDS: finasteride 5 mg Tablet PO (07:54)
[2022-04-13 07:55] VITALS: PULSE 81; RESP 16; O2SAT 94
[2022-04-13 08:00] VITALS: BP 94/68; PULSE 82; RESP 18; TEMP 36.4; O2SAT 91
[2022-04-13 08:41] LABS: Basophils # 0.1 10^3/uL (0.0-0.1); Basophils % 1.1 %; Eosinophils # 0.1 10^3/uL (0.0-0.8); Eosinophils % 1.2 %; Hematocrit 47.4 % (42.0-52.0); Hemoglobin 15.7 g/dL (11.7-16.6); Lymphocytes # 1.7 10^3/uL (0.8-4.8); Lymphocytes % 25.9 %; Mean Corpuscular HGB Conc 33.1 g/dL (30.0-36.0); Mean Corpuscular Volume 78.6 fl (80-94); Monocytes # 0.6 10^3/uL (0.2-0.9); Monocytes % 8.8 %; Neutrophils # 4.12 10^3/uL (1.8-7.7); Neutrophils % 62.8 %; Nucleated Red Blood Cells % 0 %; Platelet Count 110 10^3/cmm (130-400); Red Blood Count 6.03 10^6/uL (4.1-5.3); Red Cell Distribution Width 21.9 % (12.1-15.1); White Blood Count 6.6 10^3/uL (4.0-10.0)
[2022-04-13 08:58] LABS: INR 2.32 (0.8-1.2)
[2022-04-13 09:03] LABS: Alanine Aminotransferase 22 U/L (0-41); Albumin Level 2.9 g/dL (3.5-5.2); Alkaline Phosphatase 114 U/L (40-130); Anion Gap 13.5 (5-19); Aspartate Amino Transferase 36 U/L (0-40); Blood Urea Nitrogen 16 mg/dL (8-23); Carbon Dioxide 26 mmol/L (22-29); Chloride 102 mmol/L (98-107); Chol HDL Ratio 3.38 mg/dL (1.0-5.00); Cholesterol 81 mg/dL (0-200); Glucose 66 mg/dL (65-115); HDL Cholesterol 24 mg/dL (60-100); LDL Cholesterol Calculated 46 mg/dL (50-129); Osmolality Calculated 285 mOsm/kg (285-295); Potassium 3.5 mmol/L (3.5-5.1); Sodium 138 mmol/L (136-145); Total Bilirubin 3.2 mg/dL (0.15-1.2); Total Protein 5.9 g/dL (6.6-8.7); Triglycerides 55 mg/dL (0-150); VLDL Cholestrol Calculation 11 mg/dL (0-30)
[2022-04-13 09:13] LABS: Partial Thromboplastin Time 182.7 SECONDS (23.9-36.7)
[2022-04-13 09:14] LABS: Estmated Average Glucose 123; Hemoglobin A1C 5.9 % (4.0-6.0)
--- NOTE | 2022-04-13 10:57 | PC.CHAP ---
Pastoral Care Encounter/Spiritual Assessment Type of Contact [] Declined health nurse visit [] Patient/Family/Request visit [] Outpatient visit [] Follow-up visit [] Physician referral [] Code/Alert [x] Routine visit [] Staff referral [] Actively dying [] Patient sleeping [] Family support [] [] Out of room [] Palliative care [] [x] Receiving care in room [] Pre-surgical visit [] Trauma [x] Long length of stay [] ICU visit [] Other: Relational/Emotional Strength [x] Patient feels connected with others/family/visitors/staff [] Distress [] Loneliness/isolation [] Abandonment Spirituality of Patient [] Person of Joy [] Attends Religious of their Joy [] Believes in Prayer [] Reads Bible or Evangelical materials [] There are Spiritual issues to be addressed Honey Liquefier Interventions [x] Prayer [x] Active listening [x] Non-anxious presence [x] Spiritual/emotional support [] Crisis/trauma care [x] Spiritual counseling [] Bereavement support [] Provided bereavement packet [] Provided Bible/devotional materials [] Provided toy/stuffed animal, coloring book to patient or family member [] Provided Communion [] Anointing/[place] [] Salvation [x] Completed spiritual assessment [] Other: Impact on Illness or Injury [] Angry [] Fearful [x] Anxious [] Often cries [] Exhaustion [] Unable to work [] Unable to attend mandaen [] Unable to walk/stand [] Unable to read [] Unable to drive [] Unable to eat/drink [] Unable to sleep [] Unable to be with family [] Patient intubated [] Other: Summary senior has a congestive hearthad tests waiting ondoctors report whatneeds to be done has a good attitude + 1 Time spent with patient 10 mins
[2022-04-13] MEDS: cefTRIAXone 1,000 MG in sodium chloride 0.9% (plus) 50 ML 100 MG IV (12:02)
--- NOTE | 2022-04-13 13:48 | PM.PN ---
Subjective Subjective: Overnight patient had episode of unilateral weakness, confusion. Patient states prior to this he was having a nightmare and has had these episodes few times even at home especially at night when he wakes up in his sleep. Patient underwent neurological work-up and was seen by telemetry neurology and was started on a heparin drip. Today morning seen with family at bedside. Further goals of care discussions were done. Patient wants to go hospice. He does not want any kind of aggressive treatment. He understands the symptoms are most likely secondary from poor endorgan perfusion from cardiogenic shock in setting of severely low EF from ischemic cardiomyopathy. Today morning patient has no neurological deficit. Patient is AOx3. Vitals/I&O/Wt Last Vital Signs Temp 97.5 F L 04/13/22 08:00 Pulse 82 04/13/22 08:00 Resp 18 04/13/22 08:00 BP 94/68 04/13/22 08:00 Pulse Ox 91 04/13/22 08:00 O2 Del Method 04/13/22 08:00 O2 Flow Rate 1 04/12/22 20:00 04/12/22 04/13/22 04/13/22 22:59 06:59 14:59 Intake Total 240 / 650 150 / 800 840.667 / 840.667 Output Total 400 / 1600 Balance 240 / -550 -250 / -800 840.667 / 840.667 Weight last 48 hrs Weight 92.079 kg Physical Exam Const: COMMON NORMALS: no acute distress and patient oriented x3 HENMT: COMMON NORMALS: normocephalic HEAD & SCALP: normocephalic Eye: COMMON NORMALS: Equal, round and reactive pupils present and EOMs intact bilaterally PUPIL: Yes Equal, round and reactive pupils present Neck/C-Spine: COMMON NORMALS: no JVD Lymph: LYMPHATIC: no lymphadenopathy noted Resp: COMMON NORMALS: normal respiratory effort, No retractions, No use of accessory muscles and clear to auscultation bilaterally AUSCULTATION: clear to auscultation bilaterally and crackles Cardio: COMMON NORMALS: no JVD, regular rate, regular rhythm, S1 normal heart sound present and S2 normal heart sound present RATE: regular rate RHYTHM: regular rhythm HEART SOUNDS: S1 normal heart sound present and S2 normal heart sound present GI: COMMON NORMALS: Normal to inspection, nondistended, normoactive bowel sounds present, Soft to palpation, non-tender, no masses and no bruits PALPATION: Yes Soft to palpation OTHER: Abdominal wall edema, abdominal distention Back/Pelvis: OTHER: 2+ pitting edema bilateral extremity Extremity: COMMON NORMALS: no calf tenderness Neuro: COMMON NORMALS: patient oriented x3, CN's II-XII intact bilaterally and moves all extremities Psych: COMMON NORMALS: mental status grossly normal Urinary Catheter Management: Alvarenga: Cath Placed During This Visit: yes Reason for Continuing Indwelling Catheter: Accurate Measurement of Urinary Output in Critically Ill Patients Urinary Catheter Date of Insertion: 04/11/22 Urinary Catheter Time of Insertion: 23:00 Data 04/13/22 08:03 04/13/22 08:03 Micro: Microbiology 04/11/22 23:03 Urine Culture - Preliminary Urine,Clean Catch Gram Negative Rods 04/12/22 03:26 Blood Culture - Preliminary Blood NEGATIVE TO DATE 04/12/22 03:24 Blood Culture - Preliminary Blood NEGATIVE TO DATE A&P Assessment and plan (1) Acute cystitis: (2) Acute hypotension: (3) BPH loc w urin obs/LUTS: (4) CHF (congestive heart failure): (5) Supratherapeutic INR: In setting of congestive hepatic dysfunction from biventricular heart failure. Hemoglobin stable. Hold off on Coumadin. Most likely will transition over to NOAC. Will confirm with patient given hospice transition. (6) Hyperbilirubinemia: (7) Transaminitis: (8) CHF exacerbation: (9) Ischemic cardiomyopathy: (10) Cardiogenic shock: (11) Goals of care, counseling/discussion: Plan UTI -CT scan shows cystitis, with concerns for infected large posterior right urinary bladder diverticulum -Continue Rocephin. Follow-up blood and urine culture. Urine culture recently from 04/03 showed E. coli sensitive to levofloxacin. Alvarenga catheterization. Hypotension secondary to cardiogenic shock in setting of ischemic cardiomyopathy with severe low EF of 10%. 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 Continue with IV antibiotics for now. No further blood work, vital check as per protocol for comfort measures. Continue with IV Lasix. Set up hospice as outpatient. Plan to discharge on Eliquis 2.5 mg twice daily. Will discontinue Coumadin given erratic hepatic functions in setting of congestive hepatomegaly from biventricular heart failure Attestations Medical Necessity Statement*: Requires further hospitalization while hospice is set up for outpatient with cardiogenic shock in setting of severely low EF from ischemic cardiomyopathy Time Spent in Patient Care: 16 - 35 minutes Coding Level of Care Code Acute Splitting Machine Feeder for [facility] Fwd Diagnoses Acute cystitis N30.00 Acute hypotension I95.9 BPH loc w urin obs/LUTS N40.1 CHF (congestive heart failure) I50.9 Supratherapeutic INR R79.1 Hyperbilirubinemia E80.6 Transaminitis R74.01 CHF exacerbation I50.9 Ischemic cardiomyopathy I25.5 Cardiogenic shock R57.0 Goals of care, counseling/discussion Z71.89
--- NOTE | 2022-04-13 14:07 | PC.OT ---
OT reviewed chart. Patient has decided to move to hospice and declines further aggressive treatment. Will discharge from services. Stevie Roman OTR/L
--- NOTE | 2022-04-13 14:48 | PM.DCS ---
Discharge Providers Date of Admission: 04/12/22 01:35 Date of Discharge: April 13, 2022 Attending Provider at Admission: Kentrell Erwin MD Attending Provider at Discharge: Christ Duran MD Primary Care Provider: Rosa Gramajo MD Diagnoses at Discharge Discharge Diagnosis (1) Acute cystitis: Status: Acute (2) Acute hypotension: Status: Acute (3) BPH loc w urin obs/LUTS: Status: Chronic (4) CHF (congestive heart failure): Status: Chronic (5) Supratherapeutic INR: Status: Acute (6) Hyperbilirubinemia: Status: Acute (7) Transaminitis: Status: Acute (8) CHF exacerbation: Status: Acute (9) Ischemic cardiomyopathy: Status: Acute (10) Cardiogenic shock: Status: Acute (11) Goals of care, counseling/discussion: Status: Acute Reason for Visit Reason for Visit: bleeding in bladder area? Brief History: History as per HPI: Phillip Roman is a 71 year old male with a past medical history of atrial fibrillation, recent history of cardiac ablation at [facility], currently Coumadin on hold due to supratherapeutic INR, history of systolic and diastolic CHF on Bumex, CAD, recent hospitalization at [facility] for CHF exacerbation, according to patient over 15 L diuresis, history of lung mass, history of lung cancer, status post right lower lobectomy, history of hilar lymphadenopathy, history of emphysema, COPD, status post AICD placement, history of chronically low blood pressures at least since the last month who presents to [facility] due to complaints of weakness, fatigue, and edema, shortness of breath, lower pelvic pain, hematuria concerns for recurrent UTI.? Patient tells me that he has been on ciprofloxacin for recurrent UTI, he suffered an increased INRs his Coumadin has been held for the last 5 days.? He continues to have dysuria and hematuria, no flank pain, no back pain.? However he tells me that he has experienced increased shortness of breath, increased lower extremity edema he thinks his heart failure is back, he was diuresed over 15 L at [facility], he also had a ablation at [facility] for recurrent A. fib.? He tells me that he has been referred to [facility] for further ablation procedures as he continues to have episodes with A. fib.? Currently denies any chest pain, palpitations, no lightheadedness, dizziness.? He also reports increased abdominal distention, increased edema Hospital Course Hospital Course Patient was sent to the hospital further evaluation and management. On admission patient was in congestive heart failure secondary to biventricular failure from ischemic cardiomyopathy, hepatic congestion and gastric congestion leading to hepatic dysfunction and supratherapeutic INR. Coumadin was withheld. There was concern for UTI along with hematuria for which Alvarenga was changed. His blood culture during hospitalization remain negative the urine cultures are growing gram-negative rods. Given his overall condition multiple hospitalization had a long goals of care discussion with patient and spouse at bedside. We discussed that unfortunately he has severe ischemic cardiomyopathy with a EF of 10% which is unamenable to fix because of difficulty to revascularize, supratherapeutic INR because of liver dysfunction in setting of congestive biventricular heart failure, symptoms suggestive of gastric congestion along with hepatic congestion which she has developed again after being discharged recently from [facility] where he was 15 L negative. We discussed also with borderline blood pressures of systolic mostly in mid 80s to low 90s since recently from earlier this year as compared to when his blood pressures are more than 120s in the past is most likely secondary to related cardiogenic shock secondary to poor EF. We discussed there are 2 options. We also discussed unfortunately there is no permanent fix. We discussed 1 option would be to transfer him to ICU for pressor support with dopamine and dobutamine for resolution of cardiogenic shock and congestive heart failure for a short while as patient is not a candidate for heart transplant or there is a low chance of his EF improving substantially versus treating him medically on hospice. After discussing further with his family he decided to go hospice route. During hospitalization patient did have an an episode where he woke up in the middle of the night with confusion and possible weakness in one of his legs. CVA was ruled out but there is a concern for TIA hence was started on heparin drip. Later as per hospice goals Heparin was discontinued and transitioned over to Eliquis given chronic anticoagulation with concerns for hepatic dysfunction which are continued to worsen from hepatic congestion in setting of ischemic cardiomyopathy. Most likely the symptoms of delirium versus TIA were secondary to poor central perfusion from hypotension in setting of low EF. Patient is being discharged in comfortable state to home with hospice. Physical Exam Const: COMMON NORMALS: no acute distress and patient oriented x3 HENMT: COMMON NORMALS: normocephalic HEAD & SCALP: normocephalic Eye: COMMON NORMALS: Equal, round and reactive pupils present and EOMs intact bilaterally PUPIL: Yes Equal, round and reactive pupils present Neck/C-Spine: COMMON NORMALS: no JVD Lymph: LYMPHATIC: no lymphadenopathy noted Resp: COMMON NORMALS: normal respiratory effort, No retractions, No use of accessory muscles and clear to auscultation bilaterally AUSCULTATION: clear to auscultation bilaterally and crackles Cardio: COMMON NORMALS: no JVD, regular rate, regular rhythm, S1 normal heart sound present and S2 normal heart sound present RATE: regular rate RHYTHM: regular rhythm HEART SOUNDS: S1 normal heart sound present and S2 normal heart sound present GI: COMMON NORMALS: Normal to inspection, nondistended, normoactive bowel sounds present, Soft to palpation, non-tender, no masses and no bruits PALPATION: Yes Soft to palpation OTHER: Abdominal wall edema, abdominal distention Back/Pelvis: OTHER: 2+ pitting edema bilateral extremity Extremity: COMMON NORMALS: no calf tenderness Neuro: COMMON NORMALS: patient oriented x3, CN's II-XII intact bilaterally and moves all extremities Psych: COMMON NORMALS: mental status grossly normal Urinary Catheter Management: Alvarenga: Cath Placed During This Visit: yes Reason for Continuing Indwelling Catheter: Accurate Measurement of Urinary Output in Critically Ill Patients Urinary Catheter Date of Insertion: 04/11/22 Urinary Catheter Time of Insertion: 23:00 Discharge Data Studies Completed and Pending Completed Studies During Hospitalization Category Date Time Status CT abdomen pelvis w con* [id number] Stat Cat Scan 04/11/22 21:[address] angio head neck [CT angio headneck* [id number]] Cat Scan 04/12/22 23:[address] head wo con* [id number] Stat Cat Scan 04/12/22 22:57 Completed CXRP [XR chest 1V portable [id number]] Stat Exams 04/11/22 22:32 Completed CV. echo complete* [id number] Stat Ultrasound 04/12/22 00:24 Completed Pending at discharge Category Date Time Status Blood Culture Stat Lab 04/11/22 23:52 Results Urine Culture Stat Lab 04/11/22 23:03 Results Radiology Impressions Abdomen/Pelvis CT 04/11/22 21:44 IMPRESSION: 1. Findings consistent with cystitis with an infected large posterior right urinary bladder diverticulum. 2. Volume overload with a right pleural effusion, ascites, and body wall edema. 3. Diverticulosis of the colon without diverticulitis. 4. Enlarged liver with fatty infiltration. 5. 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 Chest X-Ray 04/11/22 22:32 IMPRESSION: Mild congestive heart failure pattern. Head CT 04/12/22 22:57 IMPRESSION: Negative acute intracranial abnormality. ASSESSMENT: ASPECTS ([place] Stroke Program Early CT Score) is 10. Head/Neck CTA 04/12/22 23:43 IMPRESSION: No large vessel occlusion. IMPRESSION: 1. Less than 50% carotid artery stenosis. 2. Negative for vascular occlusion in the neck. REFERENCES: NASCET CRITERIA. The degree of stenosis in the cervical segment of the internal carotid artery is based on NASCET criteria. Normal is no stenosis. Mild is less than 50% stenosis. Moderate is 50-69% stenosis. Severe is 70% to 99% stenosis. Total occlusion is no detectable patent lumen. Laboratory Results WBC 6.6 10^3/uL (4.0-10.0) 04/13/22 08:03 RBC 6.03 10^6/uL (4.1-5.3) H 04/13/22 08:03 Hgb 15.7 g/dL (11.7-16.6) 04/13/22 08:03 Hct 47.4 % (42.0-52.0) 04/13/22 08:03 MCV 78.6 fl (80-94) L 04/13/22 08:03 MCH 26.0 pg (28.0-34.0) L 04/13/22 08:03 MCHC 33.1 g/dL (30.0-36.0) 04/13/22 08:03 RDW 21.9 % (12.1-15.1) H 04/13/22 08:03 Plt Count 110 10^3/cmm (130-400) L 04/13/22 08:03 MPV Not Reportable 04/13/22 08:03 Neut % (Auto) 62.8 % 04/13/22 08:03 Lymph % (Auto) 25.9 % 04/13/22 08:03 [place] % (Auto) 8.8 % 04/13/22 08:03 Eos % (Auto) 1.2 % 04/13/22 08:03 Baso % (Auto) 1.1 % 04/13/22 08:03 Neut # (Auto) 4.12 10^3/uL (1.8-7.7) 04/13/22 08:03 Lymph # (Auto) 1.7 10^3/uL (0.8-4.8) 04/13/22 08:03 [place] # (Auto) 0.6 10^3/uL (0.2-0.9) 04/13/22 08:03 Eos # (Auto) 0.1 10^3/uL (0.0-0.8) 04/13/22 08:03 Baso # (Auto) 0.1 10^3/uL (0.0-0.1) 04/13/22 08:03 Nucleated RBC % (auto) 0 % 04/13/22 08:03 Nucleated RBCs # 0.0 /100WBC 04/13/22 08:03 Dimorphic RBCs 1+ H 04/11/22 20:41 Anisocytosis 2+ H 04/11/22 20:41 Microcytosis 1+ H 04/11/22 20:41 Target Cells 1+ H 04/11/22 20:41 PT 25.80 SECONDS (12.1-14.9) H 04/13/22 08:03 INR 2.32 (0.8-1.2) H 04/13/22 08:03 APTT 182.7 SECONDS (23.9-36.7) H* D 04/13/22 08:03 Sodium 138 mmol/L (136-145) 04/13/22 08:03 Potassium 3.5 mmol/L (3.5-5.1) 04/13/22 08:03 Chloride 102 mmol/L (98-107) 04/13/22 08:03 Carbon Dioxide 26 mmol/L (22-29) 04/13/22 08:03 Anion Gap 13.5 (5-19) 04/13/22 08:03 BUN 16 mg/dL (8-23) 04/13/22 08:03 Creatinine 0.9 mg/dL (0.7-1.2) 04/13/22 08:03 GFR Calculation Not Reportable 04/13/22 08:03 Glucose 66 mg/dL (65-115) 04/13/22 08:03 POC Glucose 96 mg/dL (70-110) 04/12/22 22:46 Estimat Average Glucose 123 04/13/22 08:03 Hemoglobin A1c 5.9 % (4.0-6.0) 04/13/22 08:03 Calculated Osmolality 285 mOsm/kg (285-295) 04/13/22 08:03 Lactate 1.7 mmol/L (0.5-2.2) 04/11/22 20:42 Calcium 9.0 mg/dL (8.5-10.5) 04/13/22 08:03 Magnesium 2.0 mg/dL (1.7-2.3) 04/13/22 08:03 Iron 148 ug/dL (59-158) 04/12/22 03:24 TIBC 321 mcg/dl 04/12/22 03:24 % Saturation 46.1 % (20-50) 04/12/22 03:24 Unsat Iron Binding 173 ug/dL (112-347) 04/12/22 03:24 Ferritin 138 ng/mL (30-400) 04/11/22 20:47 Total Bilirubin 3.2 mg/dL (0.15-1.2) H 04/13/22 08:03 Direct Bilirubin 1.80 mg/dL (0.00-0.30) H 04/11/22 20:47 Indirect Bilirubin 1.80 04/11/22 20:47 GGT 200 U/L (8-61) H 04/11/22 20:47 AST 36 U/L (0-40) 04/13/22 08:03 ALT 22 U/L (0-41) 04/13/22 08:03 Alkaline Phosphatase 114 U/L (40-130) 04/13/22 08:03 Ammonia 29 umol/L (16-60) 04/12/22 23:00 Troponin T Baseline 27 ng/L (0-15) H 04/11/22 20:47 Troponin T 120 Minute 30.36 ng/L (0-15) H 04/12/22 02:12 Delta Troponin T 3.36 ABS# (0-10) 04/12/22 02:12 Troponin T Hi Sens 6Hr 30.91 ng/L (0-15) H 04/12/22 03:24 Troponin T Hi Sens 6Hr Delta 3.91 ng/L (0-12) 04/12/22 03:24 C-Reactive Protein 7.2 mg/L (0.0-4.9) H 04/11/22 20:47 NT-Pro-B Natriuret Pep 6169 pg/mL (0-125) H 04/12/22 03:24 Total Protein 5.9 g/dL (6.6-8.7) L 04/13/22 08:03 Albumin 2.9 g/dL (3.5-5.2) L 04/13/22 08:03 Globulin 3.0 g/dL (1.3-4.6) 04/13/22 08:03 Triglycerides 55 mg/dL (0-150) 04/13/22 08:03 Cholesterol 81 mg/dL (0-200) 04/13/22 08:03 LDL Cholesterol, Calc 46 mg/dL (50-129) L 04/13/22 08:03 Total VLDL Cholesterol 11 mg/dL (0-30) 04/13/22 08:03 HDL Cholesterol 24 mg/dL (60-100) L 04/13/22 08:03 Cholesterol/HDL Ratio 3.38 mg/dL (1.0-5.00) 04/13/22 08:03 Amylase 39 U/L (28-100) 04/11/22 20:47 Lipase 24 U/L (13-60) 04/11/22 20:47 Vitamin B12 730 pg/mL (232-1245) 04/12/22 03:24 Folate 6.1 ng/mL (4.5-32.2) 04/12/22 03:24 Procalcitonin 0.04 ng/mL (0-0.5) 04/12/22 03:24 TSH 6.78 uIU/mL (0.27-4.20) H 04/11/22 20:47 Free T4 1.05 ng/dL (0.82-1.77) 04/11/22 20:47 Free T3 2.4 PG/ML (2.0-4.4) 04/11/22 20:47 Urine Color Dark yellow (Yellow) 04/11/22 23:03 Urine Appearance Cloudy (CLEAR) A 04/11/22 23:03 Urine pH 5 (5-7) 04/11/22 23:03 Ur Specific [place] 1.015 (1.005-1.030) 04/11/22 23:03 Urine Protein 2+ (Negative) H 04/11/22 23:03 Urine Glucose (UA) Norm (Normal) 04/11/22 23:03 Urine Ketones Negative (Negative) 04/11/22 23:03 Urine Blood 3+ (Negative) H 04/11/22 23:03 Urine Nitrate Negative (Negative) 04/11/22 23:03 Urine Bilirubin 1+ (Negative) H 04/11/22 23:03 Urine Urobilinogen 4 mg/dL (Negative) H 04/11/22 23:03 Ur Leukocyte Esterase 2+ (Negative) H 04/11/22 23:03 Urine RBC Too numerous to cnt /hpf (0-2) H 04/11/22 23:03 Urine WBC Too numerous to cnt /hpf (0-5) H 04/11/22 23:03 Ur Squamous Epith Cells 0-4 /hpf (0-5) H 04/11/22 23:03 Amorphous Sediment Not Reportable 04/11/22 23:03 Urine Bacteria 4+ /hpf (NONE) H 04/11/22 23:03 Acetaminophen < 5.0 ug/mL (10-30) L 04/11/22 20:47 Ethyl Alcohol < 10 mg/dL (0-10) 04/11/22 20:47 Hepatitis A IgM Ab Non-reactive (Nonreactive) 04/11/22 20:42 Hep Bs Antigen Non-reactive (Nonreactive) 04/11/22 20:42 Hep B Core IgM Ab Non-reactive (Nonreactive) 04/11/22 20:42 Hepatitis C Antibody Non-reactive (Nonreactive) 04/11/22 20:42 Vitals Last Vital Signs Temp 97.5 F L 04/13/22 08:00 Pulse 82 04/13/22 08:00 Resp 18 04/13/22 08:00 BP 94/68 04/13/22 08:00 Pulse Ox 91 04/13/22 08:00 O2 Del Method 04/13/22 08:00 O2 Flow Rate 1 04/12/22 20:00 Discharge Plan Discharge Patient Disposition: Hospice - Home Condition: Stable Prescriptions: New Eliquis 5 mg tablet 5 mg PO Q12H 90 Days Qty: 180 0RF levofloxacin 500 mg tablet 500 mg PO Q24H 10 Days Qty: 10 0RF Continued rosuvastatin 20 mg tablet 20 mg PO BEDTIME nitroglycerin [Nitrostat] 0.4 mg tablet, sublingual 0.4 mg SUBLINGUAL Q5M PRN (Reason: Chest Pain) cetirizine [All Day Allergy (cetirizine)] 10 mg tablet 10 mg PO DAILY PRN (Reason: Allergy Symptoms) trazodone 50 mg tablet 50 - 150 mg PO BEDTIME PRN (Reason: Sleep) loratadine [Allergy Relief (loratadine)] 10 mg tablet 10 mg PO DAILY bumetanide 1 mg tablet 2 mg PO BID levalbuterol tartrate [Xopenex HFA] 45 mcg/actuation HFA aerosol inhaler 2 inh inhalation Q6H PRN (Reason: shortness of breath or wheezing) Qty: 15 3RF Incruse Ellipta 62.5 mcg/actuation blister with device 1 inh inhalation DAILY Qty: 30 3RF spironolactone 25 mg tablet 12.5 mg PO DAILY pantoprazole 40 mg tablet,delayed release (DR/EC) 40 mg PO DAILY potassium chloride 10 mEq tablet extended release See Rx Instructions PO DAILY PRN (Reason: hypokalemia) 30 Days Qty: 150 0RF Rx Instructions: take 3 tabs in the morning, 2 in the evening orally daily PRN; metoprolol succinate 50 mg tablet extended release 24 hr 50 mg PO BID tamsulosin 0.4 mg capsule 0.4 mg PO BID finasteride 5 mg tablet 5 mg PO DAILY Discontinued warfarin 2.5 mg tablet 2.5 mg PO DAILY 90 Days Qty: 90 1RF Discharge Orders: Discharge Order (Routine); Ordered 04/13/22 Ordered By: Christ Duran Referrals: Rosa Gramajo MD [Primary Care Provider] - 2 weeks Discharge Diet: Regular Discharge Activity: Resume usual activity and Increase activity as tolerated Patient Instructions: Opioid Safety Activity Restrictions/Additional Instructions: Hospice care. Continue chronic medications as before. Oral Levaquin 500 mg daily for next 10 days. Discharge Attestations Time Spent in Discharge Care*: greater than 30 min Specific Discharge Activities: educating patient, educating and/or supporting family/caregiver, discussing with caseworker/social workers/dc planners, documenting/other paperwork and evaluating patient/reviewing data Status at Discharge: Cognitive status at discharge: cognitively intact, Behavioral status at discharge: cooperative, Functional status at discharge: uses cane/walker, Overall status at discharge: patient is back to baseline Quality Metrics Clinical Quality Measures [ No reported AMI, CVA or VTE this stay] Coding Level of Care Code Acute Chg FW DC note Diagnoses Acute cystitis N30.00 Acute hypotension I95.9 BPH loc w urin obs/LUTS N40.1 CHF (congestive heart failure) I50.9 Supratherapeutic INR R79.1 Hyperbilirubinemia E80.6 Transaminitis R74.01 CHF exacerbation I50.9 Ischemic cardiomyopathy I25.5 Cardiogenic shock R57.0 Goals of care, counseling/discussion Z71.89
== END 2022-04-13 16:32 | disposition hospice, home (50) | DRG 689 ==
LOC: ER 04-12 01:27 → MEDSURG 04-12 01:35
PROVIDERS: Admitting Provider Family Medicine; Emergency Provider Emergency Medicine; PCP Family Medicine; Visit Provider Student in an Organized Health Care Education/Training Program
DX: N30.01 Acute cystitis with hematuria (principal); I50.43 Acute on chronic combined systolic (congestive) and diastolic (congestive) heart failure; R57.0 Cardiogenic shock; D68.4 Acquired coagulation factor deficiency; I95.9 Hypotension, unspecified; N40.1 Benign prostatic hyperplasia with lower urinary tract symptoms; N13.8 Other obstructive and reflux uropathy; I25.5 Ischemic cardiomyopathy; I48.91 Unspecified atrial fibrillation; I25.10 Atherosclerotic heart disease of native coronary artery without angina pectoris; Z85.118 Personal history of other malignant neoplasm of bronchus and lung; Z90.2 Acquired absence of lung [part of]; J43.9 Emphysema, unspecified; Z95.810 Presence of automatic (implantable) cardiac defibrillator; Z87.440 Personal history of urinary (tract) infections; I50.82 Biventricular heart failure; K76.89 Other specified diseases of liver; K21.9 Gastro-esophageal reflux disease without esophagitis; Z79.891 Long term (current) use of opiate analgesic; Z79.51 Long term (current) use of inhaled steroids
CPT/HCPCS: 36415; 36416; 51702; 70450; 70496; 70498; 71045; 74177; 80053; 80061; 80074; 80307; 81001; 82140; 82150; 82247; 82248; 82607; 82728; 82746; 82962; 82977; 83036; 83540; 83550; 83605; 83690; 83735; 83880; 84145; 84439; 84443; 84481; 84484; 85025; 85049; 85610; 85730; 86140; 87040; 87077; 87086; 87186; 92523; 92610; 93005; 93306; 94640; 94664; 96365; 97161; 97165; 97530; 99285; J0696; J1644; J1940; J2405; J3490; J7030; Q9967

== ENCOUNTER → 2022-08-28 12:27 | Outpatient (BNVA) | payer OTHER, MEDICARE, SELFPAY | PROVIDERS: PCP Family Medicine; Visit Provider Urology | DX: N40.1 Benign prostatic hyperplasia with lower urinary tract symptoms (principal); R33.8 Other retention of urine; N30.00 Acute cystitis without hematuria; Z79.01 Long term (current) use of anticoagulants | CPT/HCPCS: 52000; 99213 ==

== ENCOUNTER 2023-02-23 09:24 | Day surgery (SDC) | payer OTHER, SELFPAY ==
--- NOTE | 2023-02-23 09:39 | US_ITS ---
WS: [id number] ULTRASOUND-GUIDED PARACENTESIS CLINICAL INFORMATION: biventricular heart failure, pain, dyspnea COMPARISON: None. Procedure Informed consent: The risks, benefits, and alternatives of the procedure were discussed with the edwin ent. Verbal and written consent was obtained. Timeout: A timeout was performed to confirm the correct patient, procedure, and site. Preparation: A suitable skin site was identified. The patient was prepped and draped in usual sterile fashion. Lidocaine 1% was used for local anesthesia. Catheter: 4 [place] One-step Yueh catheter. Side: LEFT lower quadrant. Fluid Volume: 6000 ml Color: Clear yellow DISPOSITION: Discarded safely. Complications: None. Patient disposition: Discharged from the department in stable condition. IMPRESSION: Uncomplicated ultrasound-guided paracentesis. Removal of 6000 cc
[2023-02-23 09:40] VITALS: BP 90/58; PULSE 80; RESP 18; TEMP 36.2; O2SAT 94; BMI 29.5
[2023-02-23 10:05] LABS: INR 2.18 (0.8-1.2)
[2023-02-23 11:15] VITALS: BP 94/62
[2023-02-23 11:44] VITALS: BP 82/64
== END 2023-02-23 11:55 | disposition home or self-care (01) ==
PROVIDERS: Radiology Neuroradiology; PCP Family Medicine; Visit Provider Family Medicine
PROC: (CPT 49082; principal; 2023-02-23 11:00)
DX: I50.9 Heart failure, unspecified (principal); R06.00 Dyspnea, unspecified; R52 Pain, unspecified
CPT/HCPCS: 49083; 85610